=== PATIENT | female | born 1995 | race Hispanic/Latino ===

== ENCOUNTER 2017-05-21 17:12 | Emergency (ER) | payer SELFPAY ==
[2017-05-21 18:12] LABS: Urine Blood 3+ (NEG); Urine Glucose NEGATIVE (NEG); Urine Protein 2+ (NEG); Urine Specific Gravity 1.025 (1.005-1.030); Urine pH 6.5 (5.0-7.0)
--- NOTE | 2017-05-21 18:14 | ER ---
Nurse's Notes [facility] Name: France Smith Age: 22 yrs Sex: Female : 1995 Arrival Date: 05/21/2017 Time: 17:15 Bed 28 Private MD: Diagnosis: Encounter for screening, unspecified Presentation: 05/21 17:18 Presenting complaint: Patient states: for month now, every time i poop, its painful and hj i see blood, bright red blood and ived been spotting for a month; reports abd pain (L lower quadrant); on control;. Transition of care: patient was not received from another setting of care. Onset of symptoms was May 21, 2017. Care prior to arrival: None. 17:18 Method Of Arrival: Ambulatory 17:18 Acuity: MELINDA 3 hj Triage Assessment: 17:20 General: Appears in no apparent distress. uncomfortable, Behavior is calm, cooperative, hj appropriate for age. Pain: Complains of pain in left lower quadrant. : Reports vaginal bleeding that is spotty. 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 - Social history:: Smoking status: Patient/guardian denies using tobacco, never smoked. Screenin:00 Abuse screen: Denies threats or abuse. Nutritional screening: No deficits noted. tl3 Tuberculosis screening: No symptoms or risk factors identified. Fall Risk None identified. Assessment: 17:21 : hj 18:00 General: Appears in no apparent distress. comfortable, slender, well groomed, well tl3 developed, well nourished, Behavior is calm, cooperative, appropriate for age. Pain: Denies pain. Neuro: Level of Consciousness is awake, alert, obeys commands, Oriented to person, place, time, situation, Appropriate for age. Cardiovascular: Heart tones S1 S2 present Capillary refill < 3 seconds in bilateral fingers. Respiratory: Airway is patent Trachea midline Respiratory effort is even, unlabored, Respiratory pattern is regular, symmetrical, Breath sounds are clear bilaterally. GI: No signs and/or symptoms were reported involving the gastrointestinal system. : Reports vaginal bleeding that is bright red, light flow, two pads a day for the last month and a half, started on Depo shots 3 months ago. EENT: No signs and/or symptoms were reported regarding the EENT system. Derm: No signs and/or symptoms reported regarding the dermatologic system. Musculoskeletal: No signs and/or symptoms reported regarding the musculoskeletal system. Vital Signs: 17:21 BP 105 / 60; Pulse 88; Resp 18; Temp 98.4(TE); Pulse Ox 100% on R/A; Weight 70.76 kg; hj Height 5 ft. 6 in. (167.64 cm); Pain 6/10; 17:21 Body Mass Index 25.18 (70.76 kg, 167.64 cm) ED Course: 17:15 Patient arrived in ED. rg4 17:20 Triage completed. hj 17:21 Arm band placed on left wrist. hj 17:33 Kaitlyn Du FNP-C [facility]. snw 17:33 Negrito Clemente MD is Attending Physician. snw 17:51 Zuri Parks, RN is Primary Nurse. tl3 18:00 No apparent distress. Awaiting lab results. tl3 18:00 Patient has correct armband on for positive identification. Bed in low position. Call tl3 light in reach. 18:00 No provider procedures requiring assistance completed. tl3 19:45 Patient did not have IV access during this emergency room visit. tl3 Administered Medications: No medications were administered Outcome: 18:14 Discharge ordered by . snw 18:27 Patient left the ED. tl3 18:27 Discharged to home ambulatory. tl3 18:27 Condition: good 18:27 Discharge instructions given to patient. Signatures: Kaitlyn Du FNP-C OCCUPATIONAL HEALTH NURSING DIRECTOR-Csnw Gene Zamora RN RN hj Garcia, Rubi 4 Zuri Parks, STEF RN tl3 Corrections: (The following items were deleted from the chart) 17:23 17:21 Pulse 88bpm; Resp 18bpm; Pulse Ox 100% RA; Temp 98.4F Temporal; 70.76 kg; Height hj 5 ft. 6 in.; BMI: 25.1; Pain 6/10; hj
--- NOTE | 2017-05-21 18:15 | EDPHYS ---
Physician Documentation [facility] Name: France Smith Age: 22 yrs Sex: Female : 1995 Arrival Date: 05/21/2017 Time: 17:15 Bed 28 Private MD: ED Physician Negrito Clemente HPI: 05/21 18:24 This 22 yrs old Female presents to ER via Ambulatory with complaints of snw Vaginal Bleeding. 18:24 The patient presents with vaginal bleeding that is light, tenderness to rectal area snw with bowel movements. Onset: The symptoms/episode began/occurred 1 month(s) ago. Modifying factors: The symptoms are alleviated by nothing. Associated signs and symptoms: The patient has no apparent associated signs or symptoms. Severity of symptoms: At their worst the symptoms were mild. The patient's method of control includes depo. It is unknown whether or not the patient has had similar symptoms in the past. The patient has not recently seen a physician, awaiting medicaid. 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 - Social history:: Smoking status: Patient/guardian denies using tobacco, never smoked. ROS: 18:18 Constitutional: Negative for fever, chills, and weight loss, Eyes: Negative for injury, snw pain, redness, and discharge, ENT: Negative for injury, pain, and discharge, Neck: Negative for injury, pain, and swelling, Cardiovascular: Negative for chest pain, palpitations, and edema, Respiratory: Negative for shortness of breath, cough, wheezing, and pleuritic chest pain, Abdomen/GI: Negative for abdominal pain, nausea, vomiting, diarrhea, and constipation, + rectal pain, bleeding Back: Negative for injury and pain, MS/Extremity: Negative for injury and deformity, Skin: Negative for injury, rash, and discoloration, Neuro: Negative for headache, weakness, numbness, tingling, and seizure. 18:18 : Positive for vaginal bleeding. Exam: 18:18 Constitutional: This is a well developed, well nourished patient who is awake, alert, snw and in no acute distress. Head/Face: Normocephalic, atraumatic. Eyes: Pupils equal round and reactive to light, extra-ocular motions intact. Lids and lashes normal. Conjunctiva and sclera are non-icteric and not injected. Cornea within normal limits. Periorbital areas with no swelling, redness, or edema. ENT: Nares patent. No nasal discharge, no septal abnormalities noted. Tympanic membranes are normal and external auditory canals are clear. Oropharynx with no redness, swelling, or masses, exudates, or evidence of obstruction, uvula midline. Mucous membranes moist. Neck: Trachea midline, no thyromegaly or masses palpated, and no cervical lymphadenopathy. Supple, full range of motion without nuchal rigidity, or vertebral point tenderness. No Meningismus. Chest/axilla: Normal chest wall appearance and motion. Nontender with no deformity. No lesions are appreciated. Cardiovascular: Regular rate and rhythm with a normal S1 and S2. No gallops, murmurs, or rubs. Normal PMI, no JVD. No pulse deficits. Respiratory: Lungs have equal breath sounds bilaterally, clear to auscultation and percussion. No rales, rhonchi or wheezes noted. No increased work of breathing, no retractions or nasal flaring. Abdomen/GI: Soft, non-tender, with normal bowel sounds. No distension or tympany. No guarding or rebound. No evidence of tenderness throughout. + rectal tenderness, small fissure and external hemorrhoid noted, no active bleeding Back: No spinal tenderness. No costovertebral tenderness. Full range of motion. Skin: Warm, dry with normal turgor. Normal color with no rashes, no lesions, and no evidence of cellulitis. MS/ Extremity: Pulses equal, no cyanosis. Neurovascular intact. Full, normal range of motion. Neuro: Awake and alert, GCS 15, oriented to person, place, time, and situation. Cranial nerves II-XII grossly intact. Motor strength 5/5 in all extremities. Sensory grossly intact. Cerebellar exam normal. Normal gait. Vital Signs: 17:21 BP 105 / 60; Pulse 88; Resp 18; Temp 98.4(TE); Pulse Ox 100% on R/A; Weight 70.76 kg; hj Height 5 ft. 6 in. (167.64 cm); Pain 6/10; 17:21 Body Mass Index 25.18 (70.76 kg, 167.64 cm) hj MDM: 17:36 Patient medically screened. snw 18:21 Data reviewed: vital signs, nurses notes. Data interpreted: Pulse oximetry: on room air snw is 100 %. Interpretation: normal. Counseling: I had a detailed discussion with the patient and/or guardian regarding: the historical points, exam findings, and any diagnostic results supporting the discharge/admit diagnosis, the need for outpatient follow up, to return to the emergency department if symptoms worsen or persist or if there are any questions or concerns that arise at home. Special discussion: Based on the history and exam findings, there is no indication for further emergent testing or inpatient evaluation. I discussed with the patient/guardian the need to see the OB Gyne specialist for further evaluation of the symptoms. ED course: pt states she is not supposed to have vaginal bleeding because she is on depo provera. Pt last rec'd dose >3 months ago. Awaiting medicaid before getting appt with [facility]. 05/21 18:05 Order name: Urine Dipstick--Ancillary (enter results); Complete Time: 18:14 ag 05/21 18:05 Order name: Urine --Ancillary (enter results); Complete Time: 18:14 ag 05/21 17:23 Order name: Urine Dipstick-Ancillary (obtain specimen); Complete Time: 18:00 hj 05/21 17:23 Order name: Urine Test (obtain specimen); Complete Time: 18:00 Administered Medications: No medications were administered Disposition: 05/22 10:23 Co-signature as Attending Physician, Negrito Clemente MD I agree with the assessment and jacob plan of care. Disposition: 05/21/17 18:14 Discharged to Home. Impression: Encounter for screening, unspecified. - Condition is Stable. - Discharge Instructions: Constipation, Adult, Dysmenorrhea, Hemorrhoids, Sitz Bath. - Prescriptions for Tucks - wash 1 application by TOPICAL route 6 times per day; 1 Container. - Medication Reconciliation Form, Thank You Letter, Antibiotic Education, Prescription Opioid Use form. - Follow up: Private Physician; When: 1 week; Reason: Recheck today's complaints, Continuance of care, Re-evaluation by your physician. Signatures: Dispatcher [employer] Negrito Nelson MD MD cha Therrien, Shelly, FINANCE CLERK-C FINANCE CLERK-Csnw Gene Zamora, RN RN hj Zuri Parks RN RN tl3
== END 2017-05-21 18:27 | disposition home or self-care (01) ==
LOC: ER 17:12
DX: Z13.9 Encounter for screening, unspecified (principal)
CPT/HCPCS: 81003; 81025; 99281

== ENCOUNTER 2018-02-17 12:41 | Emergency (ER) | payer SELFPAY ==
[2018-02-17 13:28] LABS: Urine Blood 3+ (NEG); Urine Glucose NEGATIVE (NEG); Urine Protein 1+ (NEG); Urine Specific Gravity 1.025 (1.005-1.030); Urine pH 6.5 (5.0-7.0)
[2018-02-17] MEDS ORDERED: NA CHLORIDE 0.9% 1,000 ML ONE (13:30)
[2018-02-17] MEDS ORDERED: ONDANSETRON 4 MG/2 ML VIAL ONE (13:30)
[2018-02-17 13:36] LABS: Barbiturates NEGATIVE (NEGATIVE); Benzodiazepines NEGATIVE (NEGATIVE); Cocaine NEGATIVE (NEGATIVE); METHAMPHETAM NEGATIVE (NEGATIVE); Methadone NEGATIVE (NEGATIVE); Opiates NEGATIVE (NEGATIVE); Phencyclidine NEGATIVE (NEGATIVE); THC Cannibis NEGATIVE (NEGATIVE)
[2018-02-17 13:55] LABS: Absolute Lymphocytes (CBC) 1.3 K/uL (0.7-4.9); Absolute Monocytes 0.4 K/uL (0.1-1.3); Absolute Neutrophil 3.5 K/uL (1.8-8.0); Basophils % 0.9 % (0-1.3); Hematocrit 42.6 % (36.0-45.0); Lymphocytes % 22.8 % (15.3-44.8); MPV 10.2 fL (7.6-11.3); Monocytes % 7.3 % (3.3-12.3); RBC Red Blood Cell Count 5.09 M/uL (3.86-4.86)
[2018-02-17 13:58] LABS: BUN Blood Urea Nitrogen 12 mg/dL (7-18); Bicarbonate 27 mmol/L (21-32); Glucose Level 85 mg/dL (74-106); Potassium 3.5 mmol/L (3.5-5.1); Sodium Level 142 mmol/L (136-145)
[2018-02-17 14:08] LABS: Urine Bacteria 20-50 /HPF (<20)
[2018-02-17 14:09] LABS: Urine Culture Reflex Order NOT NEEDED; Urine Mucus 2+ /HPF (NONE SEEN)
--- NOTE | 2018-02-17 14:10 | EDPHYS ---
Physician Documentation [facility] Name: France Smith Age: 22 yrs Sex: Female : 1995 Arrival Date: 02/17/2018 Time: 12:43 Bed 23 Private MD: None, None ED Physician Negrito Clemente HPI: 02/17 13:36 This 22 yrs old Female presents to ER via Ambulatory with complaints of kb Nausea/Vomiting, Dizziness. 13:36 The patient presents to the emergency department with nausea, vomiting. Onset: The kb symptoms/episode began/occurred last night. Possible causes: unknown. The symptoms are aggravated by nothing. The symptoms are alleviated by nothing. Associated signs and symptoms: Pertinent positives: nausea, vomiting. Severity of symptoms: At their worst the symptoms were moderate in the emergency department the symptoms are unchanged. The patient has not experienced similar symptoms in the past. The patient has not recently seen a physician. 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 - Social history:: Smoking status: Patient/guardian denies using tobacco, Patient uses alcohol, only on a social basis. - Ebola Screening: : Patient negative for fever greater than or equal to 101.5 degrees Fahrenheit, and additional compatible Ebola Virus Disease symptoms Patient denies exposure to infectious person Patient denies travel to an Ebola-affected area in the 21 days before illness onset No symptoms or risks identified at this time. ROS: 13:34 Constitutional: Negative for fever, chills, and weight loss, Cardiovascular: Negative kb for chest pain, palpitations, and edema, Respiratory: Negative for shortness of breath, cough, wheezing, and pleuritic chest pain, Back: Negative for injury and pain, MS/Extremity: Negative for injury and deformity, Skin: Negative for injury, rash, and discoloration, Neuro: Negative for headache, weakness, numbness, tingling, and seizure. 13:34 Abdomen/GI: Positive for nausea and vomiting, Negative for abdominal pain, diarrhea, constipation. Exam: 13:35 Constitutional: This is a well developed, well nourished patient who is awake, alert, kb and in no acute distress. Head/Face: Normocephalic, atraumatic. ENT: Nares patent. No nasal discharge, no septal abnormalities noted. Tympanic membranes are normal and external auditory canals are clear. Oropharynx with no redness, swelling, or masses, exudates, or evidence of obstruction, uvula midline. Mucous membranes moist. Neck: Trachea midline, no thyromegaly or masses palpated, and no cervical lymphadenopathy. Supple, full range of motion without nuchal rigidity, or vertebral point tenderness. No Meningismus. Chest/axilla: Normal chest wall appearance and motion. Nontender with no deformity. No lesions are appreciated. Cardiovascular: Regular rate and rhythm with a normal S1 and S2. No gallops, murmurs, or rubs. Normal PMI, no JVD. No pulse deficits. Respiratory: Lungs have equal breath sounds bilaterally, clear to auscultation and percussion. No rales, rhonchi or wheezes noted. No increased work of breathing, no retractions or nasal flaring. Abdomen/GI: Soft, non-tender, with normal bowel sounds. No distension or tympany. No guarding or rebound. No evidence of tenderness throughout. Skin: Warm, dry with normal turgor. Normal color with no rashes, no lesions, and no evidence of cellulitis. MS/ Extremity: Pulses equal, no cyanosis. Neurovascular intact. Full, normal range of motion. Neuro: Awake and alert, GCS 15, oriented to person, place, time, and situation. Cranial nerves II-XII grossly intact. Motor strength 5/5 in all extremities. Sensory grossly intact. Cerebellar exam normal. Normal gait. Vital Signs: 12:56 BP 119 / 63; Pulse 87; Resp 19; Temp 97.7; Pulse Ox 100% on R/A; Weight 77.11 kg; aj Height 5 ft. 6 in. (167.64 cm); 13:10 BP 112 / 75 Supine; Pulse 74; kr2 13:10 BP 106 / 70 Sitting; Pulse 72; kr2 13:10 BP 104 / 83; Pulse 97; kr2 15:01 BP 110 / 84; Pulse 78; Resp 16; Pulse Ox 100% ; kr2 12:56 Body Mass Index 27.44 (77.11 kg, 167.64 cm) aj 13:10 complains of dizziness kr2 13:10 complains of dizziness kr2 MDM: 12:58 Patient medically screened. kb 13:34 Data reviewed: vital signs, nurses notes. Data interpreted: Pulse oximetry: on room air kb is 100 %. Interpretation: normal. 14:03 Counseling: I had a detailed discussion with the patient and/or guardian regarding: the kb historical points, exam findings, and any diagnostic results supporting the discharge/admit diagnosis, lab results, the need for outpatient follow up, a family practitioner, to return to the emergency department if symptoms worsen or persist or if there are any questions or concerns that arise at home. 02/17 12:44 Order name: Urine Drug Screen; Complete Time: 13:38 snw 02/17 12:44 Order name: Urine Culture snw 02/17 12:44 Order name: Urine Microscopic Only; Complete Time: 14:09 snw 02/17 13:04 Order name: CBC with Diff; Complete Time: 14:02 kb 02/17 13:04 Order name: Basic Metabolic Panel; Complete Time: 14:02 kb 02/17 13:21 Order name: Urine Dipstick--Ancillary (enter results); Complete Time: 13:30 ag 02/17 12:44 Order name: Urine Test (obtain specimen); Complete Time: 13:33 snw 02/17 12:44 Order name: Urine Dipstick-Ancillary (obtain specimen); Complete Time: 13:33 snw 02/17 12:58 Order name: Orthostatics; Complete Time: 13:07 kb 02/17 13:04 Order name: IV Start; Complete Time: 13:33 kb 02/17 14:03 Order name: PO challenge; Complete Time: 14:16 kb Administered Medications: 13:32 Drug: NS 0.9% 1000 ml Route: IV; Rate: 1000 ml; Site: right antecubital; kr2 15:00 Follow up: Response: No adverse reaction; IV Status: Completed infusion kr2 13:33 Drug: Zofran 4 mg Route: IVP; Site: right antecubital; kr2 14:09 Follow up: Response: No adverse reaction; Nausea is decreased kr2 Disposition: 15:07 Co-signature as Attending Physician, Negrito Clemente MD I agree with the assessment and jacob plan of care. Disposition: 02/17/18 14:10 Discharged to Home. Impression: Nausea and vomiting. - Condition is Stable. - Discharge Instructions: Nausea and Vomiting, Adult, [id number]. - Prescriptions for Zofran 4 mg Oral Tablet - take 1 tablet by ORAL route every 6 hours As needed; 20 tablet. - Medication Reconciliation Form, Thank You Letter, Antibiotic Education, Prescription Opioid Use form. - Follow up: Emergency Department; When: As needed; Reason: Worsening of condition. Follow up: Private Physician; When: 2 - 3 days; Reason: Recheck today's complaints, Continuance of care, Re-evaluation by your physician. Signatures: Dispatcher [employer] EDMS Marley Spencer, NURSING AIDE-C NURSING AIDE-Clarissa Ayon, RN Negrito Allan MD MD cha Therrien, Shelly, NURSING AIDE-C NURSING AIDE-Kelliw Joy Murphy RN RN kr2 Corrections: (The following items were deleted from the chart) 15:04 14:10 02/17/2018 14:10 Discharged to Home. Impression: Nausea and vomiting. Condition kr2 is Stable. Forms are Medication Reconciliation Form, Thank You Letter, Antibiotic Education, Prescription Opioid Use. Follow up: Emergency Department; When: As needed; Reason: Worsening of condition. Follow up: Private Physician; When: 2 - 3 days; Reason: Recheck today's complaints, Continuance of care, Re-evaluation by your physician. kb
--- NOTE | 2018-02-17 14:10 | ER ---
Nurse's Notes [facility] Name: France Smith Age: 22 yrs Sex: Female : 1995 Arrival Date: 02/17/2018 Time: 12:43 Bed 23 Private MD: None, None Diagnosis: Nausea and vomiting Presentation: 02/17 12:54 Presenting complaint: Patient states: N/V and dizziness when standing since yesterday. aj Reports blood streaking in emesis. Patient ambulated with steady quick gait to triage, using cell phone with no difficulty. Patient was able to apply makeup prior to arrival at ER. Transition of care: patient was not received from another setting of care. Onset of symptoms was February 16, 2018. Risk Assessment: Do you want to hurt yourself or someone else? Patient reports no desire to harm self or others. Initial Sepsis Screen: Does the patient meet any 2 criteria? No. Patient's initial sepsis screen is negative. Does the patient have a suspected source of infection? No. Patient's initial sepsis screen is negative. Care prior to arrival: None. 12:54 Method Of Arrival: Ambulatory 12:54 Acuity: MELINDA 3 Triage Assessment: 12:56 General: Appears in no apparent distress. comfortable, Behavior is calm, cooperative, aj appropriate for age. Pain: Denies pain. Neuro: Level of Consciousness is awake, alert, obeys commands, Oriented to person, place, time, situation, Appropriate for age. Respiratory: Airway is patent Respiratory effort is even, unlabored, Respiratory pattern is regular, symmetrical. GI: Abdomen is flat, non-distended, Reports nausea, vomiting. Derm: Skin is intact, is healthy with good turgor, Skin is pink, warm \T\ dry. normal. 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 - Social history:: Smoking status: Patient/guardian denies using tobacco, Patient uses alcohol, only on a social basis. - Ebola Screening: : Patient negative for fever greater than or equal to 101.5 degrees Fahrenheit, and additional compatible Ebola Virus Disease symptoms Patient denies exposure to infectious person Patient denies travel to an Ebola-affected area in the 21 days before illness onset No symptoms or risks identified at this time. Screenin:12 Abuse screen: Denies threats or abuse. Denies injuries from another. Nutritional kr2 screening: No deficits noted. Tuberculosis screening: No symptoms or risk factors identified. Fall Risk None identified. Assessment: 13:08 General: Appears in no apparent distress. comfortable, well groomed, well developed, kr2 well nourished, Behavior is calm, cooperative, appropriate for age. Pain: Denies pain. Neuro: Level of Consciousness is awake, alert, obeys commands, Oriented to person, place, time, situation, Appropriate for age. Neuro: Reports dizziness. Cardiovascular: Reports nausea, vomiting, Capillary refill < 3 seconds in bilateral fingers Patient's skin is warm and dry. Respiratory: Airway is patent Respiratory effort is even, unlabored, Respiratory pattern is regular, symmetrical. GI: Abdomen is flat, non-distended, Bowel sounds present X 4 quads. Abd is soft and non tender X 4 quads. Reports nausea, vomiting. : Urine is clear. EENT: Oral mucosa is moist. Derm: Skin is intact, is healthy with good turgor, Skin is pink, warm \T\ dry. Musculoskeletal: Circulation, motion, and sensation intact. 14:00 Reassessment: Patient appears in no apparent distress at this time. Patient and/or kr2 family updated on plan of care and expected duration. Pain level reassessed. Patient is alert, oriented x 3, equal unlabored respirations, skin warm/dry/pink. Patient denies pain at this time. Patient states feeling better. 15:01 Reassessment: Patient appears in no apparent distress at this time. Patient and/or kr2 family updated on plan of care and expected duration. Pain level reassessed. Patient is alert, oriented x 3, equal unlabored respirations, skin warm/dry/pink. No vomiting after PO challenge. Vital Signs: 12:56 BP 119 / 63; Pulse 87; Resp 19; Temp 97.7; Pulse Ox 100% on R/A; Weight 77.11 kg; aj Height 5 ft. 6 in. (167.64 cm); 13:10 BP 112 / 75 Supine; Pulse 74; kr2 13:10 BP 106 / 70 Sitting; Pulse 72; kr2 13:10 BP 104 / 83; Pulse 97; kr2 15:01 BP 110 / 84; Pulse 78; Resp 16; Pulse Ox 100% ; kr2 12:56 Body Mass Index 27.44 (77.11 kg, 167.64 cm) aj 13:10 complains of dizziness kr2 13:10 complains of dizziness kr2 ED Course: 12:43 Patient arrived in ED. sb2 12:43 None, None is Private Physician. sb2 12:49 Marley Spencer FNP-C is PHCP. kb 12:49 Negrito Clemente MD is Attending Physician. kb 12:55 Triage completed. aj 12:56 Arm band placed on left wrist. Patient placed in an exam room. aj 13:12 Patient has correct armband on for positive identification. Bed in low position. Call kr2 light in reach. Side rails up X 1. Adult w/ patient. Pulse ox on. NIBP on. 13:20 Inserted saline lock: 20 gauge in right antecubital area, using aseptic technique. kr2 Blood collected. 14:59 Joy Murphy, RN is Primary Nurse. kr2 15:02 No provider procedures requiring assistance completed. IV discontinued, intact, kr2 bleeding controlled, No redness/swelling at site. Pressure dressing applied. Administered Medications: 13:32 Drug: NS 0.9% 1000 ml Route: IV; Rate: 1000 ml; Site: right antecubital; kr2 15:00 Follow up: Response: No adverse reaction; IV Status: Completed infusion kr2 13:33 Drug: Zofran 4 mg Route: IVP; Site: right antecubital; kr2 14:09 Follow up: Response: No adverse reaction; Nausea is decreased kr2 Outcome: 14:10 Discharge ordered by . kb 15:02 Discharged to home ambulatory, with family. kr2 15:02 Condition: good 15:02 Discharge instructions given to patient, family, Instructed on discharge instructions, follow up and referral plans. medication usage, Demonstrated understanding of instructions, follow-up care, medications, Prescriptions given X 1. 15:04 Patient left the ED. kr2 Addendum: 02/20/2018 08:47 Addendum: Culture Results: Positive urine culture. pt had no urinary complaints at time i w of visit, no need for further intervention, culture report reviewed by AMADOU Guzman Patient was not prescribed antibiotics at discharge. Report given to ADELA for further evaluation and then to test design engineer for follow up with patient. Signatures: Marley Spencer, LIA WYATT-Clarissa Ayon RN RN Philomena Reece RN RN iw Reaves, Karey, RN RN kr2 Kimberly Buchanan2 Corrections: (The following items were deleted from the chart) 02/17 12:57 12:54 Presenting complaint: Patient states: N/V and dizziness when standing since aj yesterday. Reports blood streaking in emesis. Patient ambulated with steady quick gait to triage, using cell phone with no difficulty. aj
== END 2018-02-17 15:04 | disposition home or self-care (01) ==
LOC: ER 12:41
DX: R11.2 Nausea with vomiting, unspecified (principal)
CPT/HCPCS: 36415; 80048; 80307; 81003; 81015; 85025; 87077; 87086; 87088; 87186; 96361; 96374; 99284; J2405; J7030

== ENCOUNTER 2018-12-20 22:06 | Emergency (ER) | payer SELFPAY ==
[2018-12-20] MEDS ORDERED: SIMETHICONE 80 MG TAB ONE (22:35)
[2018-12-20] MEDS ORDERED: ALBUTEROL 2.5 MG/3 ML NEB SOL ONE (22:43)
[2018-12-20] MEDS ORDERED: NA CHLORIDE 0.9% 1,000 ML ONE (22:44)
[2018-12-20 23:00] LABS: Absolute Lymphocytes (CBC) 2.5 K/uL (0.7-4.9); Basophils % 0.9 % (0-1.3); Hematocrit 35.7 % (36.0-45.0); Lymphocytes % 24.2 % (15.3-44.8); MPV 10.7 fL (7.6-11.3); RBC Red Blood Cell Count 4.31 M/uL (3.86-4.86)
[2018-12-20 23:19] LABS: Urine Bacteria <20 /HPF (<20); Urine Culture Reflex Order NOT NEEDED; Urine RBC <5 /HPF (NONE SEEN)
[2018-12-20 23:22] LABS: BUN Blood Urea Nitrogen 9 mg/dL (7-18); Bicarbonate 27 mmol/L (21-32); Glucose Level 83 mg/dL (74-106); Potassium 3.3 mmol/L (3.5-5.1); Sodium Level 141 mmol/L (136-145)
--- NOTE | 2018-12-20 23:32 | ER ---
Nurse's Notes [facility] Name: France Smith Age: 23 yrs Sex: Female : 1995 Arrival Date: 12/20/2018 Time: 22:09 Bed 8 Private MD: Diagnosis: Wheezing;Allergy, unspecified Presentation: 12/20 22:20 Presenting complaint: Patient states: cough, SOB X2 days. pt is [place] and uses [facility] ak[facility] clinic. pt stated she feels as if there is a "blockage" in her epigastric area. Transition of care: patient was not received from another setting of care. Onset of symptoms was December 19, 2018. Risk Assessment: Do you want to hurt yourself or someone else? Patient reports no desire to harm self or others. Initial Sepsis Screen: Does the patient meet any 2 criteria? No. Patient's initial sepsis screen is negative. Does the patient have a suspected source of infection? No. Patient's initial sepsis screen is negative. Care prior to arrival: None. 22:20 Method Of Arrival: Ambulatory ak1 22:20 Acuity: MELINDA 4 ak1 Triage Assessment: 22:22 General: Appears in no apparent distress. Behavior is cooperative, anxious. Pain: ak1 Denies pain. 22:23 Respiratory: Onset: The symptoms/episode began/occurred yesterday. 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 - Social history:: Smoking status: Patient/guardian denies using tobacco. - Ebola Screening: : No symptoms or risks identified at this time. Screenin:23 Abuse screen: Denies threats or abuse. Denies injuries from another. Nutritional ak1 screening: No deficits noted. Tuberculosis screening: No symptoms or risk factors identified. Fall Risk None identified. Assessment: 22:35 General: Appears in no apparent distress. comfortable, Behavior is calm, cooperative, aa1 appropriate for age. Pain: Complains of pain in xyphoid area Quality of pain is described as pressure, Pain began 2-3 days ago. Is intermittent. Neuro: Level of Consciousness is awake, alert, obeys commands, Oriented to person, place, time, situation, Moves all extremities. Full function Gait is steady, Speech is normal. Cardiovascular: Heart tones S1 S2 present Rhythm is regular. Respiratory: Reports shortness of breath at rest cough that is non-productive, Airway is patent Respiratory effort is even, unlabored, Respiratory pattern is regular, symmetrical, Breath sounds are clear bilaterally. the patient has mild shortness of breath. GI: No signs and/or symptoms were reported involving the gastrointestinal system. : No signs and/or symptoms were reported regarding the genitourinary system. EENT: No signs and/or symptoms were reported regarding the EENT system. Derm: Skin is intact, is healthy with good turgor, Skin is pink, warm \\T\\ dry. Musculoskeletal: Circulation, motion, and sensation intact. Capillary refill < 3 seconds. 23:41 Reassessment: Patient appears in no apparent distress at this time. Patient is alert, aa1 oriented x 3, equal unlabored respirations, skin warm/dry/pink. Discussed d/c \\T\\ f/u instructions with pt \\T\\ significant other; denies questions or concerns at this time. Ambulatory to lobby with steady gait Patient denies pain at this time. Patient states feeling better. Patient states symptoms have improved. Vital Signs: 22:19 BP 127 / 78; Pulse 106; Resp 18; Temp 97.5; Pulse Ox 100% on R/A; Weight 81.65 kg (R); ak1 Height 5 ft. 6 in. (167.64 cm) (R); Pain 0/10; 23:04 BP 118 / 77; Pulse 92; Resp 20; Pulse Ox 100% on R/A; Pain 0/10; aa1 22:19 Body Mass Index 29.05 (81.65 kg, 167.64 cm) ak1 ED Course: 22:09 Patient arrived in ED. cf2 22:19 Arm band placed on Patient placed in an exam room, on a stretcher, on pulse oximetry, ak1 Patient notified of wait time. 22:21 Kaitlyn Du [facility]C [facility] snw 22:21 Rodrick Ely MD is Attending Physician. snw 22:22 Triage completed. ak1 22:23 Patient has correct armband on for positive identification. Bed in low position. Call ak1 light in reach. Side rails up X 1. Adult w/ patient. Pulse ox on. NIBP on. 22:31 Lesly Calderon, RN is Primary Nurse. aa1 22:40 Urine collected: clean catch specimen, clear. aa1 22:48 Inserted saline lock: 20 gauge in right antecubital area, using aseptic technique. mw2 Blood collected. 23:41 No provider procedures requiring assistance completed. IV discontinued, intact, aa1 bleeding controlled, No redness/swelling at site. Pressure dressing applied. Administered Medications: 22:38 Drug: Simethicone 120 mg Route: PO; aa1 22:50 Drug: Albuterol 2.5 mg Route: Inhalation; aa1 22:50 Drug: NS 0.9% (20 ml/kg) 20 ml/kg Route: IV; Rate: 1 bolus; Site: right antecubital; aa1 Outcome: 23:31 Discharge ordered by . snw 23:41 Discharged to home ambulatory, with significant other. aa1 23:41 Condition: good 23:41 Discharge instructions given to patient, significant other, Instructed on discharge instructions, follow up and referral plans. medication usage, Demonstrated understanding of instructions, follow-up care, medications, Prescriptions given X 2. 23:45 Patient left the ED. aa1 Signatures: Lesly Calderon, RN RN aa1 Kaitlyn Du, FLARE MAN-C FLARE MAN-Csnw Dede Nolasco RN RN ak1 Maxi Lela mw2 Leonid Inman 2
--- NOTE | 2018-12-20 23:32 | EDPHYS ---
Physician Documentation [facility] Name: France Smith Age: 23 yrs Sex: Female : 1995 Arrival Date: 12/20/2018 Time: 22:09 Bed 8 Private MD: ED Physician Rodrick Ely HPI: 12/20 22:40 This 23 yrs old Female presents to ER via Ambulatory with complaints of snw Shortness Of Breath. 22:40 The patient has shortness of breath at rest. Onset: The symptoms/episode began/occurred snw suddenly, 2 day(s) ago, and became persistent. Duration: The symptoms are continuous, and are steadily getting worse. The patient's shortness of breath is aggravated by nothing, is alleviated by nothing. Severity of symptoms: At their worst the symptoms were moderate in the emergency department the symptoms are unchanged. The patient has not experienced similar symptoms in the past. appt with [facility] [[email or web address] tomorrow, + IUP. . 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 - Social history:: Smoking status: Patient/guardian denies using tobacco. - Ebola Screening: : No symptoms or risks identified at this time. ROS: 22:39 Eyes: Negative for injury, pain, redness, and discharge, ENT: Negative for injury, snw pain, and discharge, Neck: Negative for injury, pain, and swelling, Cardiovascular: Negative for chest pain, palpitations, and edema, Abdomen/GI: Negative for abdominal pain, nausea, vomiting, diarrhea, and constipation, Back: Negative for injury and pain, : Negative for injury, bleeding, discharge, and swelling, MS/Extremity: Negative for injury and deformity, Skin: Negative for injury, rash, and discoloration, Neuro: Negative for headache, weakness, numbness, tingling, and seizure, Psych: Negative for depression, anxiety, suicide ideation, homicidal ideation, and hallucinations. 22:39 Constitutional: Positive for feel short of breath. 22:39 Respiratory: Positive for cough, shortness of breath, wheezing. Exam: 22:38 Constitutional: This is a well developed, well nourished patient who is awake, alert, snw and in no acute distress. Head/Face: Normocephalic, atraumatic. Eyes: Pupils equal round and reactive to light, extra-ocular motions intact. Lids and lashes normal. Conjunctiva and sclera are non-icteric and not injected. Cornea within normal limits. Periorbital areas with no swelling, redness, or edema. ENT: Nares patent. No nasal discharge, no septal abnormalities noted. Tympanic membranes are normal and external auditory canals are clear. Oropharynx with no redness, swelling, or masses, exudates, or evidence of obstruction, uvula midline. Mucous membranes moist. Neck: Trachea midline, no thyromegaly or masses palpated, and no cervical lymphadenopathy. Supple, full range of motion without nuchal rigidity, or vertebral point tenderness. No Meningismus. Chest/axilla: Normal chest wall appearance and motion. Nontender with no deformity. No lesions are appreciated. Cardiovascular: Regular rate and rhythm with a normal S1 and S2. No gallops, murmurs, or rubs. Normal PMI, no JVD. No pulse deficits. Abdomen/GI: Soft, non-tender, with normal bowel sounds. No distension or tympany. No guarding or rebound. No evidence of tenderness throughout. Back: No spinal tenderness. No costovertebral tenderness. Full range of motion. Skin: Warm, dry with normal turgor. Normal color with no rashes, no lesions, and no evidence of cellulitis. MS/ Extremity: Pulses equal, no cyanosis. Neurovascular intact. Full, normal range of motion. Neuro: Awake and alert, GCS 15, oriented to person, place, time, and situation. Cranial nerves II-XII grossly intact. Motor strength 5/5 in all extremities. Sensory grossly intact. Cerebellar exam normal. Normal gait. Psych: Awake, alert, with orientation to person, place and time. Behavior, mood, and affect are within normal limits. 22:38 Respiratory: the patient does not display signs of respiratory distress, Respirations: frequent deep breaths, Breath sounds: wheezing: expiratory SpO2 100%, but pt feels SOB. Vital Signs: 22:19 BP 127 / 78; Pulse 106; Resp 18; Temp 97.5; Pulse Ox 100% on R/A; Weight 81.65 kg (R); ak1 Height 5 ft. 6 in. (167.64 cm) (R); Pain 0/10; 23:04 BP 118 / 77; Pulse 92; Resp 20; Pulse Ox 100% on R/A; Pain 0/10; aa1 22:19 Body Mass Index 29.05 (81.65 kg, 167.64 cm) ak1 MDM: 22:26 Patient medically screened. snw 23:32 Data reviewed: vital signs, nurses notes. Counseling: I had a detailed discussion with snw the patient and/or guardian regarding: the historical points, exam findings, and any diagnostic results supporting the discharge/admit diagnosis, lab results, the need for outpatient follow up, to return to the emergency department if symptoms worsen or persist or if there are any questions or concerns that arise at home. Response to treatment: the patient's symptoms have markedly improved after treatment. Special discussion: Based on the history and exam findings, there is no indication for further emergent testing or inpatient evaluation. I discussed with the patient/guardian the need to see the OB Gyne specialist for further evaluation of the symptoms. 12/20 22:30 Order name: Urine Microscopic Only; Complete Time: 23:20 snw 12/20 22:35 Order name: CBC with Diff; Complete Time: 23:16 snw 12/20 22:35 Order name: Chem 7; Complete Time: 23:25 snw 12/20 22:35 Order name: DD; Complete Time: 23:16 snw 12/20 22:35 Order name: TSH; Complete Time: 23:25 snw 12/20 22:30 Order name: Urine Dipstick-Ancillary (obtain specimen); Complete Time: 22:49 snw 12/20 22:49 Order name: IV Start; Complete Time: 22:49 aa1 Administered Medications: 22:38 Drug: Simethicone 120 mg Route: PO; aa1 22:50 Drug: Albuterol 2.5 mg Route: Inhalation; aa1 22:50 Drug: NS 0.9% (20 ml/kg) 20 ml/kg Route: IV; Rate: 1 bolus; Site: right antecubital; aa1 Disposition: 12/21 07:00 Co-signature as Attending Physician, Rodrick Ely MD I agree with the assessment and tw4 plan of care. Disposition: 12/20/18 23:31 Discharged to Home. Impression: Wheezing, Allergy, unspecified. - Condition is Stable. - Discharge Instructions: Allergies, Adult, How to Use an Inhaler. - Prescriptions for Zyrtec 10 mg Oral Tablet - take 1 tablet by ORAL route once daily As needed; 20 tablet. Albuterol Sulfate 90 mcg/actuation - inhale 1-2 puff by INHALATION route every 4-6 hours; 1 Inhaler. - Work release form, Medication Reconciliation Form, Thank You Letter, Antibiotic Education, Prescription Opioid Use form. - Follow up: Private Physician; When: 1 - 2 days; Reason: Recheck today's complaints, Continuance of care, Re-evaluation by your physician. Follow up: Emergency Department; When: As needed; Reason: Trouble breathing, Worsening of condition. Signatures: Dispatcher [employer] EDLesly Holcomb RN RN aa1 Kaitlyn Du, ENVIRONMENTAL SERVICES DIRECTOR-C ENVIRONMENTAL SERVICES DIRECTOR-Csnw Dede Nolasco RN RN ak1 Rodrick Ely MD MD tw4 Corrections: (The following items were deleted from the chart) 12/20 23:45 23:31 12/20/2018 23:31 Discharged to Home. Impression: Wheezing; Allergy, unspecified. aa1 Condition is Stable. Forms are Medication Reconciliation Form, Thank You Letter, Antibiotic Education, Prescription Opioid Use. Follow up: Private Physician; When: 1 - 2 days; Reason: Recheck today's complaints, Continuance of care, Re-evaluation by your physician. Follow up: Emergency Department; When: As needed; Reason: Trouble breathing, Worsening of condition. snw
[2018-12-21 01:52] VITALS: TEMP 97.5; O2SAT 100
[2018-12-21 01:54] VITALS: BP 118/77
--- OUTSIDE RECORDS SUMMARY | 2018-12-26 22:10 | XMS REPORT ---
:1995 [facility] Address [address] [place] [address] Dr. Starks [address] [place] [id number] Care Team Providers Name Role Phone Unavailable Unavailable Unavailable Problems This patient has no known problems. Allergies, Adverse Reactions, Alerts This patient has no known allergies or adverse reactions. Medications This patient has no known medications.
== END 2018-12-20 23:45 | disposition home or self-care (01) ==
LOC: ER 22:06
DX: O26.891 Other specified pregnancy related conditions, first trimester (principal); Z3A.01 Less than 8 weeks gestation of pregnancy; Z91.09 Other allergy status, other than to drugs and biological substances
CPT/HCPCS: 36415; 80048; 81015; 84443; 85025; 85379; 99284; J7030

== ENCOUNTER 2019-05-15 10:40 | Emergency (ER) | payer OTHER ==
--- OUTSIDE RECORDS SUMMARY | 2019-05-15 10:42 | XMS REPORT | Summary of Care ---
:1995 Author Organization [facility] Address [address] [place] [address] Care Team Providers Name Role Phone Den Arredondo NEWSPAPER ILLUSTRATOR Primary Care Provider Reason for Visit Reason Comments Care Encounter Details Date Type Department Care Team Description 03/14/2019 Routine [facility]- Den Arredondo Supervision of high risk , antepartum (Primary Dx); Visit EDMUNDO Navarrete Previous delivery affecting , antepartum; [address] (vaginal after ) trial; [place], [place] [address] [place], [place] [phone] Allergies No Known Allergiesdocumented as of this encounter (statuses as of 03/14/2019) Medications Medication Sig Dispensed Refills Start Date End Date Status vit Take 1 Packet by 30 Each 6 01/17/2019 Active 19-ojlf-nqyyz-dha mouth daily. (SELECT-OB + DHA) 29 mg iron-1 mg -250 mg combo packIndications: Supervision of high risk , antepartum Vit Take 1 tablet by 30 tablet 9 02/14/2019 Active Comb.10-Iron-FA mouth daily. (VITAFOL-OB) 65-1 mg TabIndications: Supervision of high risk , antepartum documented as of this encounter (statuses as of 03/14/2019) Active Problems Problem Noted Date Previous delivery affecting , antepartum 12/21/2018 Multiparity 12/21/2018 [place]ires (vaginal after ) trial 12/21/2018 Rubella non-immune status, antepartum 08/04/2012 Overview: Give Supervision of high risk , antepartum 06/09/2012 Overview: ICD10 Diagnosis Term Supervisor Hardboard Utility Estimated Date of Delivery Comments Yes 08/07/2019 Based on last menstrual period of 10/31/2018 (Approximate) documented as of this encounter (statuses as of 03/14/2019) Resolved Problems Problem Noted Date Resolved Date Well woman exam 05/10/2015 12/21/2018 Contraceptive management 05/10/2015 12/21/2018 Depo contraception 05/10/2015 12/21/2018 Screen for STD (sexually transmitted disease) 05/10/2015 12/21/2018 UTI (urinary tract infection) 02/25/2013 05/10/2015 Rubella immune 02/23/2013 05/10/2015 Surveillance of previously prescribed contraceptive pill 02/22/20132015 Routine follow-up 01/24/2013 05/10/2015 Other general counseling and advice for contraceptive 01/24/2013 02/22/2013 management Disruption of wound, 01/24/2013 02/22/2013 Pain pelvic 01/24/2013 02/22/2013 Other threatened labor, antepartum 12/24/2012 01/24/2013 Breech presentation 12/23/2012 01/24/2013 Malposition or malpresentation of fetus, antepartum 12/21/2012 01/24/2013 Overview: ICD10 Diagnosis Term Supervisor Hardboard Utility Pubic bone pain 12/21/2012 01/24/2013 Flu vaccine need 11/04/2012 01/24/2013 Overview: Given 11/04/2012 Antepartum anemia 10/22/2012 02/23/2013 Overview: ICD10 Diagnosis Term Supervisor Hardboard Utility Abnormal maternal glucose tolerance, antepartum 10/22/2012 01/24/2013 Overview: 1 hr- 136, Needs 3 hr ------ Normal. Tinea corporis 09/01/2012 01/24/2013 Immune to varicella 07/07/2012 05/10/2015 Not immune to rubella 06/10/2012 02/23/2013 Overview: Equiv. Give pospartum. ICD10 Diagnosis Term Supervisor Hardboard Utility Teen 06/09/2012 01/24/2013 Overview: Partner age 17; no coersion Seasonal allergies 06/02/2012 01/24/2013 documented as of this encounter (statuses as of 03/14/2019) Immunizations Name Administration Dates Next Due HPV9 11/07/2015, 08/08/2015, 05/10/2015 Influenza Virus Vaccine 11/04/2012 MMR 01/03/2013 Rubella 06/07/2012 Tdap 10/21/2012, 11/10/2011 Varicella (varivax)(chicken pox) 06/07/2012 documented as of this encounter Social History Tobacco Use Types Packs/Day Years Used Date Never Smoker Smokeless Tobacco: Never Used Alcohol Use Drinks/Week oz/Week Comments No 0 Standard drinks or equivalent 0.0 Estimated Date of Delivery Comments Yes 08/07/2019 Based on last menstrual period of 10/31/2018 (Approximate) Sex Assigned at Date Recorded Not on file Job Start Date Occupation Industry Not on file Not on file Not on file Travel History Travel Start Travel End No recent travel history available. documented as of this encounter Last Filed Vital Signs Vital Sign Reading Time Taken Comments Blood Pressure 126/74 03/14/2019 9:14 AM OVERHEAD LINE WORKER Pulse 104 03/14/2019 9:14 AM OVERHEAD LINE WORKER Temperature 36.9 C (98.5 F) 03/14/2019 9:14 AM OVERHEAD LINE WORKER Respiratory Rate 16 03/14/2019 9:14 AM OVERHEAD LINE WORKER Oxygen Saturation - - Inhaled Oxygen Concentration - - Weight 82.1 kg (181 lb) 03/14/2019 9:14 AM OVERHEAD LINE WORKER Height 167.6 cm (5' 6") 03/14/2019 9:14 AM OVERHEAD LINE WORKER Body Mass Index 29.21 03/14/2019 9:14 AM OVERHEAD LINE WORKER documented in this encounter Progress Notes Den Arredondo, NEWSPAPER ILLUSTRATOR - 03/14/2019 8:45 AM CST Chief complaint: Chief Complaint Patient presents with Care HPI CC: Follow Up Visit [place] Smith is a 23 year old, , /White female. Patient's last menstrual periodwas 10/31/2018 (approximate). She is 19w1d with an intrauterine . Her estimated date of delivery is 08/07/2019, by Last Menstrual Period. She has no complaints today. She reports +FM and denies contractions, LOF and bleeding today. Patient denies current or past physical, sexual or emotional abuse. Histories OB History Para Term AB Living 2 1 1 1 SAB TAB Ectopic Multiple Live Births 1 # Outcome Date GA Lbr Hunter/2nd Weight Sex Delivery Anes PTL Lv 2 Current 1 Term 01/01/13 8 lb 10 oz (3.912 kg) M CS-LTranv N JEFFREY Comments: System Generated. Please review and update details. Past Medical History: Diagnosis Date Abnormal maternal glucose tolerance, antepartum 10/22/2012 Anemia, antepartum(648.23) 10/22/2012 with Screen for STD (sexually transmitted disease) 05/10/2015 Family History Problem Relation Age of Onset Cancer Maternal Aunt 59 lung Arthritis Father No Significant Medical Problems Mother No Significant Medical Problems Sister No Significant Medical Problems Brother No Significant Medical Problems Maternal Grandmother No Significant Medical Problems Maternal Grandfather No Significant Medical Problems Paternal Grandmother No Significant Medical Problems Paternal Grandfather Asthma NoFHx Colon Cancer NoFHx Ovarian Cancer NoFHx Uterine Cancer NoFHx Depression NoFHx Diabetes NoFHx Heart NoFHx Genetic NoFHx High cholesterol NoFHx Mental retardation NoFHx Neurological NoFHx Osteoporosis NoFHx Hypertension NoFHx Psychiatry NoFHx Family Status Relation Name Status MAunt Fa Alive Mo Alive Sis Alive Bro Alive MUnc Alive PAunt Alive PUnc Alive MGMo MGFa PGMo Alive PGFa Alive NoFHx (Not Specified) Past Surgical History: Procedure Laterality Date ANTEPARTUM HEAD MANIPULATION 12/23/2012 SECTION 01/01/2013 SECTION 01/01/2013 Surgeon: Karyn Sherman MD; Location: [facility] Social History Socioeconomic History Marital status: Single Spouse name: Not on file Number of children: 0 Years of education: 9 Highest education level: Not on file Occupational History Not on file Social Needs Financial resource strain: Not on file Food insecurity: Worry: Not on file Inability: Not on file Transportation needs: Medical: Not on file Non-medical: Not on file Tobacco Use Smoking status: Never Smoker Smokeless tobacco: Never Used Substance and Sexual Activity Alcohol use: No Alcohol/week: 0.0 standard drinks Drug use: No Sexual activity: Yes Partners: Male control/protection: None Comment: last sexual intercourse 12/21/2018 Lifestyle Physical activity: Days per week: Not on file Minutes per session: Not on file Stress: Not on file Relationships Social connections: Talks on phone: Not on file Gets together: Not on file Attends confucianist service: Not on file Active member of club or organization: Not on file Attends meetings of clubs or organizations: Not on file Relationship status: Not on file Intimate partner violence: Fear of current or ex partner: Not on file Emotionally abused: Not on file Physically abused: Not on file Forced sexual activity: Not on file Other Topics Concern Service Not Asked Blood Transfusions No Caffeine Concern Not Asked Occupational Exposure Not Asked Hobby Hazards Not Asked Sleep Concern Not Asked Stress Concern Not Asked Weight Concern Not Asked Special Diet Not Asked Back Care Not Asked Exercise Not Asked Bike Helmet Not Asked Seat Belt Not Asked Self-Exams Not Asked Social History Narrative Pt states her confucianist preference is Muslim Lives with roommate and child No domestic violence or abuse Patient has 1 puppy. Social History Substance and Sexual Activity Sexual Activity Yes Partners: Male control/protection: None Comment: last sexual intercourse 12/21/2018 Labs No new labs Radiology Radiology pending. Allergies [place] has No Known Allergies. Medications [place] has a current medication list which includes the following prescription(s) : vit comb.10-iron-fa and vit 84-bill-jfqve-dha. Review of Systems Eyes: Negative for visual disturbance. Cardiovascular: Negative for leg swelling. Gastrointestinal: Negative for abdominal pain, nausea and vomiting. Genitourinary: Negative for vaginal bleeding, vaginal discharge and pelvic pain. Neurological: Negative for headaches. BP 126/74 (BP Location: Right arm, Patient Position: Sitting, BP CUFF SIZE: Adult Medium) | Pulse 104 | Temp 36.9 C (98.5 F) (Oral) | Resp 16 | Ht 5 ' 6" (1.676 m) | Wt 181 lb (82.1 kg) | LMP 10/31/2018 (Approximate) | BMI 29.21 kg/m Pregravid BMI: 28.3 Physical Exam PHYSICAL: General Exam: Neurological: Normal Abdomen: Normal Extremities: Normal Pelvic Exam: Uterus: 18cm Weeks Assessment/Plan Supervision of high risk , antepartum (primary encounter diagnosis) Previous delivery affecting , antepartum [place] (vaginal after ) trial Multiparity Comment: Routine Visit Plan: POCT URINALYSIS W SPECIFIC GRAVITY Denies zika virus risk, signs and symptoms such as fever,rash,joint pain, conjunctivitis (red eyes), muscle pain, headaches; outside [place] travel to areas affected by zika, and FOB exposure to zika.Educated on use of mosquito repellent. Return to clinic in 4 weeks. Discussed treatment options. Medications as ordered. Reviewed patient instructions and provided printed copy. This visit did not involve counseling and coordination that comprised more than 50% of the visit time. EDMUNDO Wyman 03/14/2019 10:27 AM documented in this encounter Plan of Treatment Date Type Specialty Care Team Description 03/14/2019 Pile Trimmer Visit Maternal Den Arredondo, Medicine NEWSPAPER ILLUSTRATOR [address] [place] [address] [phone] 04/11/2019 Routine Visit OB Satellites Den Arredondo, NEWSPAPER ILLUSTRATOR [address] [place] [address] [phone] Health Maintenance Due Date Last Done Comments MENINGOCOCCAL B VACCINES (1 12/21/2019 Postponed from of 2 - Risk Bexsero 2-dose 2006 ( or series) ) CHLAMYDIA SCREENING 12/22/2019 12/21/2018, 05/10/2015, 05/09/2014, Additional history exists INFLUENZA VACCINE (#1) 2019 11/04/2012 Postponed from 10/17/2018 (Refused) PAP SMEAR 12/21/2021 12/21/2018 DTaP,Tdap,and Td Vaccines 10/21/2022 10/21/2012, 11/10/2011 (3 - Td) HPV VACCINES Completed 11/07/2015, 08/08/2015, 05/10/2015 MENINGOCOCCAL VACCINE Aged Out No longer eligible based on patient's age to complete this topic PNEUMOCOCCAL 0-64 YEARS Aged Out No longer eligible COMBINED SERIES based on patient's age to complete this topic documented as of this encounter Procedures Procedure Name Priority Date/Time Associated Diagnosis Comments POCT URINALYSIS Routine 03/14/2019 9:14 AM Supervision of high Results for this OVERHEAD LINE WORKER risk , procedure are in antepartum the results section. documented in this encounter Results POCT URINALYSIS W SPECIFIC GRAVITY (03/14/2019 9:14 AM OVERHEAD LINE WORKER) POCT U SP GRAV . 1.005 - 1.025 mg/dl POCT PH U . 5 - 8 mg/dl POCT U LEUK EST . Negative - Negative POCT U NIT . Negative - Negative POCT U PROT trace Negative - Negative POCT U GLU neg Negative - Negative POCT U KETONE . Negative - Negative POCT U UROBILI . 0.2 - 1 mg/dl POCT U BILI . Negative - Negative POCT U BLD . Negative - Negative POCT U COLOR POCT U APPEAR Specimen Urine - URINE, CLEAN CATCH documented in this encounter Visit Diagnoses Diagnosis Supervision of high risk , antepartum - Primary Previous delivery affecting , antepartum Previous delivery, antepartum condition or complication [place] (vaginal after ) trial Previous delivery, unspecified as to episode of care or not applicable Multiparity documented in this encounter Insurance Payer Benefit Plan / Subscriber ID Effective Phone Address Type Group Dates [facility] xxxxxxxxx 2018-Pres [address] Medicaid HEALTH CHOICE - HEALTH CHOICE [facility] [id number] [facility] MEDICAID [place], [place] MEDICAID [phone] documented as of this encounter
--- OUTSIDE RECORDS SUMMARY | 2019-05-15 10:42 | XMS REPORT ---
:1995 Author Organization [facility] Address [address] [place] [address] Dr. Starks [address] [place] [id number] Care Team Providers Name Role Phone Unavailable Unavailable Unavailable Problems This patient has no known problems. Allergies, Adverse Reactions, Alerts This patient has no known allergies or adverse reactions. Medications This patient has no known medications.
--- OUTSIDE RECORDS SUMMARY | 2019-05-15 10:42 | XMS REPORT | Summary of Care ---
:1995 Author Organization [facility] Address [address] [place] [address] Care Team Providers Name Role Phone Den Arredondo VENTILATOR SPECIALIST Primary Care Provider Reason for Visit Reason Comments Care Encounter Details Date Type Department Care Team Description 03/14/[address] [facility] [place] [place]- Den Arredondo Supervision of high risk , antepartum (Primary Dx); Visit EDMUNDO Navarrete Previous delivery affecting , antepartum; [address] (vaginal after ) trial; [place], [place] [address] [place], [place] [phone] [address] Allergies No Known Allergiesdocumented as of this encounter (statuses as of 03/14/2019) Medications Medication Sig Dispensed Refills Start Date End Date Status vit Take 1 Packet by 30 Each 6 01/17/2019 Active 46-dkzi-zdjoh-dha mouth daily. (SELECT-OB + DHA) 29 mg [...] , antepartum 06/09/2012 Overview: ICD10 Diagnosis Term Technical Training Specialist Utility Estimated Date of Delivery Comments Yes [...] antepartum 12/21/2012 01/24/2013 Overview: ICD10 Diagnosis Term Technical Training Specialist Utility Pubic bone pain 12/21/2012 01/24/2013 Flu vaccine need 11/04/2012 01/24/2013 Overview: Given 11/04/2012 Antepartum anemia 10/22/2012 02/23/2013 Overview: ICD10 Diagnosis Term Technical Training Specialist Utility Abnormal maternal glucose tolerance, antepartum 10/22/2012 01/24/2013 Overview: 1 hr- 136, Needs 3 hr ------ Normal. Tinea corporis 09/01/2012 01/24/2013 Immune to varicella 07/07/2012 05/10/2015 Not immune to rubella 06/10/2012 02/23/2013 Overview: Equiv. Give pospartum. ICD10 Diagnosis Term Technical Training Specialist Utility Teen 06/09/2012 01/24/2013 Overview: Partner age [...] Comments Blood Pressure 126/74 03/14/2019 9:14 AM OIL FIELD PIPELINE SUPERVISOR Pulse 104 03/14/2019 9:14 AM OIL FIELD PIPELINE SUPERVISOR Temperature 36.9 C (98.5 F) 03/14/2019 9:14 AM OIL FIELD PIPELINE SUPERVISOR Respiratory Rate 16 03/14/2019 9:14 AM OIL FIELD PIPELINE SUPERVISOR Oxygen Saturation - - Inhaled Oxygen Concentration - - Weight 82.1 kg (181 lb) 03/14/2019 9:14 AM OIL FIELD PIPELINE SUPERVISOR Height 167.6 cm (5' 6") 03/14/2019 9:14 AM OIL FIELD PIPELINE SUPERVISOR Body Mass Index 29.21 03/14/2019 9:14 AM OIL FIELD PIPELINE SUPERVISOR documented in this encounter Progress Notes Den Arredondo, VENTILATOR SPECIALIST - 03/14/2019 8:45 AM CST Chief complaint: [...] file Gets together: Not on file Attends tenriism service: Not on file Active member of [...] Asked Social History Narrative Pt states her tenriism preference is Quaker Lives with roommate and child No domestic violence or abuse Patient has 1 puppy. Social History Substance and Sexual Activity Sexual Activity Yes Partners: Male control/protection: None Comment: last sexual intercourse 12/21/2018 Labs No new labs Radiology Radiology pending. Allergies [place] has No Known Allergies. Medications [place] has a current medication list which includes the following prescription(s) : vit comb.10-iron-fa and vit 08-alvc-gwkrb-dha. Review of Systems Eyes: Negative for visual [...] Date Type Specialty Care Team Description 03/14/2019 Assembler Fitter Visit Maternal Den Arredondo, Medicine VENTILATOR SPECIALIST [address] [place] [address] [phone] 04/11/2019 Routine Visit OB Satellites Den Arredondo, VENTILATOR SPECIALIST [address] [place] [address] [phone] Health Maintenance Due Date Last Done Comments [...] AM Supervision of high Results for this OIL FIELD PIPELINE SUPERVISOR risk , procedure are in antepartum the results section. documented in this encounter Results POCT URINALYSIS W SPECIFIC GRAVITY (03/14/2019 9:14 AM OIL FIELD PIPELINE SUPERVISOR) POCT U SP GRAV . 1.005 - [...] ID Effective Phone Address Type Group Dates [facility] xxxxxxxxx 2018-Pres [address] Medicaid HEALTH CHOICE - HEALTH CHOICE [facility] [id number] [place] MEDICAID [place], [place] MEDICAID [phone] documented as of this encounter
--- OUTSIDE RECORDS SUMMARY | 2019-05-15 10:43 | XMS REPORT | Summary of Care ---
:1995 Author Organization [facility] Address [address] [place] [address] Care Team Providers Name Role Phone Den Arredondo Primary Care Provider Encounter Details Date Type Department Care Team Description 03/15/2019 Abstract [facility] Den Arredondo, INSOLE AND OUTSOLE SPLITTER [address] [facility] [address] [place] [address] [place] [address] [phone] Allergies No Known Allergiesdocumented as of this encounter (statuses as of 03/15/2019) Medications Medication Sig Dispensed Refills Start Date End Date Status vit Take 1 Packet by 30 Each 6 01/17/2019 Active 62-tirl-zwjmm-dha mouth daily. (SELECT-OB + DHA) 29 mg iron-1 mg -250 mg combo packIndications: Supervision of high risk , antepartum Vit Take 1 tablet by 30 tablet 9 02/14/2019 Active Comb.10-Iron-FA mouth daily. (VITAFOL-OB) 65-1 mg TabIndications: Supervision of high risk , antepartum documented as of this encounter (statuses as of 03/15/2019) Active Problems Problem Noted Date Low lying placenta, antepartum 03/15/2019 Previous delivery affecting , antepartum 12/21/2018 Multiparity 12/21/2018 [place]ires (vaginal after ) trial 12/21/2018 Rubella non-immune status, antepartum 08/04/2012 Overview: Give Supervision of high risk , antepartum 06/09/2012 Overview: ICD10 Diagnosis Term Buffer Chrome Utility Estimated Date of Delivery Comments Yes 08/07/2019 Based on last menstrual period of 10/31/2018 (Approximate) documented as of this encounter (statuses as of 03/15/2019) Resolved Problems Problem Noted Date Resolved Date [...] antepartum 12/21/2012 01/24/2013 Overview: ICD10 Diagnosis Term Buffer Chrome Utility Pubic bone pain 12/21/2012 01/24/2013 Flu vaccine need 11/04/2012 01/24/2013 Overview: Given 11/04/2012 Antepartum anemia 10/22/2012 02/23/2013 Overview: ICD10 Diagnosis Term Buffer Chrome Utility Abnormal maternal glucose tolerance, antepartum 10/22/2012 01/24/2013 Overview: 1 hr- 136, Needs 3 hr ------ Normal. Tinea corporis 09/01/2012 01/24/2013 Immune to varicella 07/07/2012 05/10/2015 Not immune to rubella 06/10/2012 02/23/2013 Overview: Equiv. Give pospartum. ICD10 Diagnosis Term Buffer Chrome Utility Teen 06/09/2012 01/24/2013 Overview: Partner age 17; no coersion Seasonal allergies 06/02/2012 01/24/2013 documented as of this encounter (statuses as of 03/15/2019) Immunizations Name Administration Dates Next Due HPV9 [...] of this encounter Last Filed Vital Signs Not on filedocumented in this encounter Plan of Treatment Date Type Specialty Care Team Description 04/11/2019 Routine Visit OB Satellites Den Arredondo, INSOLE AND OUTSOLE SPLITTER [address] [place] [address] [phone] 06/13/2019 Senior Oracle Database Developer Visit Maternal Medicine 06/13/2019 Senior Oracle Database Developer Visit Maternal Medicine Health Maintenance Due Date Last Done Comments [...] this topic documented as of this encounter Results Not on filedocumented in this encounter Insurance Payer Benefit Plan / Subscriber ID Effective Phone Address Type Group Dates [facility] xxxxxxxxx 2018-Pres [address] Medicaid HEALTH CHOICE - HEALTH CHOICE [facility] [id number] MANAGED MEDICAID [place], [place] MED[place]ID [phone] documented as of this encounter
--- OUTSIDE RECORDS SUMMARY | 2019-05-15 10:43 | XMS REPORT | Summary of Care ---
:1995 Author Organization [facility] Address [address] [place] [id number] Care Team Providers Name Role Phone Den Arredondo Primary Care Provider Reason for Visit Reason Comments Care Encounter Details Date Type Department Care Team Description 04/11/2019 Routine [facility]- Den Arredondo Supervision of high risk , antepartum (Primary Dx); Visit EDMUNDO Navarrete Previous delivery affecting , antepartum; [address] (vaginal after ) trial; [place], [place]; [address] [place], [place] Low lying placenta, antepartum [phone] Allergies No Known Allergiesdocumented as of this encounter (statuses as of 04/11/2019) Medications Medication Sig Dispensed Refills Start Date End Date Status vit Take 1 Packet by 30 Each 6 01/17/2019 Active 83-pdvl-iztlb-dha mouth daily. (SELECT-OB + DHA) 29 mg iron-1 mg -250 mg combo packIndications: Supervision of high risk , antepartum Vit Take 1 tablet by 30 tablet 9 02/14/2019 Active Comb.10-Iron-FA mouth daily. (VITAFOL-OB) 65-1 mg TabIndications: Supervision of high risk , antepartum vit Take 1 Packet by 30 Each 6 04/11/2019 Active 12-wmld-qkezv-dha mouth daily. (SELECT-OB + DHA) 29 mg iron-1 mg -250 mg combo packIndications: Supervision of high risk , antepartum documented as of this encounter (statuses as of 04/11/2019) Active Problems Problem Noted Date Low lying placenta, antepartum 03/15/2019 Previous delivery affecting , antepartum 12/21/2018 Multip[place] 12/21/2018 [place] (vaginal after ) trial 12/21/2018 Rubella non-immune status, antepartum 08/04/2012 Overview: Give Supervision of high risk , antepartum 06/09/2012 Overview: ICD10 Diagnosis Term Catering Assistant Utility Estimated Date of Delivery Comments Yes 08/07/2019 Based on last menstrual period of 10/31/2018 (Approximate) documented as of this encounter (statuses as of 04/11/2019) Resolved Problems Problem Noted Date Resolved Date [...] antepartum 12/21/2012 01/24/2013 Overview: ICD10 Diagnosis Term Catering Assistant Utility Pubic bone pain 12/21/2012 01/24/2013 Flu vaccine need 11/04/2012 01/24/2013 Overview: Given 11/04/2012 Antepartum anemia 10/22/2012 02/23/2013 Overview: ICD10 Diagnosis Term Catering Assistant Utility Abnormal maternal glucose tolerance, antepartum 10/22/2012 01/24/2013 Overview: 1 hr- 136, Needs 3 hr ------ Normal. Tinea corporis 09/01/2012 01/24/2013 Immune to varicella 07/07/2012 05/10/2015 Not immune to rubella 06/10/2012 02/23/2013 Overview: Equiv. Give pospartum. ICD10 Diagnosis Term Catering Assistant Utility Teen 06/09/2012 01/24/2013 Overview: Partner age 17; no coersion Seasonal allergies 06/02/2012 01/24/2013 documented as of this encounter (statuses as of 04/11/2019) Immunizations Name Administration Dates Next Due HPV9 [...] Sign Reading Time Taken Comments Blood Pressure 114/68 04/11/2019 9:28 AM BOOK COVERER Pulse 92 04/11/2019 9:28 AM BOOK COVERER Temperature 36.6 C (97.9 F) 04/11/2019 9:28 AM BOOK COVERER Respiratory Rate 16 04/11/2019 9:28 AM BOOK COVERER Oxygen Saturation - - Inhaled Oxygen Concentration - - Weight 84.1 kg (185 lb 5 oz) 04/11/2019 9:28 AM BOOK COVERER Height 167.6 cm (5' 6") 04/11/2019 9:28 AM BOOK COVERER Body Mass Index 29.91 04/11/2019 9:28 AM BOOK COVERER documented in this encounter Progress Notes Den Arredondo, EDMUNDO - 04/11/2019 9:30 AM CST Chief complaint: Chief Complaint Patient presents with Care HPI CC: Follow Up Visit [place] Smith is a 24 year old, , /White female. Patient's last menstrual periodwas 10/31/2018 (approximate). She is 23w1d with an intrauterine . Her estimated date of delivery is 08/07/2019, by Last Menstrual Period. She has no complaints today. She reports +FM and denies contractions, LOF and bleeding today. Will review labs and f/u as needed. OB/ER , PIH, PTL and movement precautions given. Patient denies current or past physical, sexual [...] file Gets together: Not on file Attends jain service: Not on file Active member of [...] Asked Social History Narrative Pt states her jain preference is [place] Lives with roommate and child No domestic violence or abuse Patient has 1 puppy. Social History Substance and Sexual Activity Sexual Activity Yes Partners: Male control/protection: None Comment: last sexual intercourse 12/21/2018 Labs No new labs Radiology No new radiology. Allergies [place] has No Known Allergies. Medications [place] has a current medication list which includes the following prescription(s) : vit 55-jtwi-sesdz-dha, vit comb.10-iron-fa, and vit 17-inty-wmnzj-dha. Review of Systems Eyes: Negative for visual disturbance. Cardiovascular: Negative for leg swelling. Gastrointestinal: Negative for abdominal pain, nausea and vomiting. Genitourinary: Negative for vaginal bleeding, vaginal discharge and pelvic pain. Neurological: Negative for headaches. BP 114/68 (BP Location: Right arm, Patient Position: Sitting, BP CUFF SIZE: Adult Medium) | Pulse 92 | Temp 36.6 C (97.9 F) (Oral) | Resp 16 | Ht 5 ' 6" (1.676 m) | Wt 185 lb 5 oz (84.1 kg) | LMP 10/31/2018 (Approximate) | BMI 29.91 kg/m Pregravid BMI: 28.3 Physical Exam PHYSICAL: General Exam: Neurological: Normal Abdomen: Normal Extremities: Normal Pelvic Exam: Uterus: 23cm Weeks Assessment/Plan Supervision of high risk , antepartum (primary encounter diagnosis) Previous delivery affecting , antepartum [place] (vaginal after ) trial Multiparity Comment:Routine Visit Plan: POCT URINALYSIS W SPECIFIC GRAVITY, Glucose 1 Hour Post Prandial, CBC with Differential, vit 64-uefy-rfzcy-dha (SELECT-OB + DHA) 29 mg iron-1 mg -250 mg combo pack Denies zika virus risk, signs and symptoms such as fever,rash,joint pain, conjunctivitis (red eyes), muscle pain, headaches; outside [place] travel to areas affected by zika, and FOB exposure to zika. Educated on use of mosquito repellent. Low lying placenta, antepartum Comment:Low Lying Placenta noted on USG 03/15 Needs 26wj labs at [place](ordered) Plan: Follow up USG is needed Return to clinic in 3 weeks. Discussed treatment options. Medications as ordered. Reviewed patient instructions and provided printed copy. This visit did not involve counseling and coordination that comprised more than 50% of the visit time. EDMUNDO Wyman 04/11/2019 10:23 AM documented in this encounter Plan of Treatment Date Type Specialty Care Team Description 05/02/2019 Routine Visit OB Satellites Den Arredondo FNP [address] [place] [address] [phone] 06/13/2019 Steward/Stewardess Smoke Room Visit Maternal Medicine 06/13/2019 Steward/Stewardess Smoke Room Visit Maternal Medicine Name Type Priority Associated Diagnoses Order Schedule Glucose 1 Hour Post LAB Routine Supervision of high risk Expected: 2019, Prandial , antepartum Expires: 04/11/2020 CBC with Differential LAB Routine Supervision of high risk Expected: 2019, , antepartum Expires: 04/11/2020 Health Maintenance Due Date Last Done Comments MENINGOCOCCAL B VACCINES (1 12/21/2019 Postponed from of 2 - Risk Bexsero 2-dose 2006 ( or series) ) CHLAMYDIA SCREENING 12/22/2019 12/21/2018, 05/10/2015, 05/09/2014, Additional history exists INFLUENZA VACCINE (#1) 2019 11/04/2012 Postponed from 10/17/2018 (Refused) PAP SMEAR 12/21/2021 12/21/2018 DTaP,Tdap,and Td Vaccines 10/21/2022 10/21/2012, 11/10/2011 (3 - Td) HPV VACCINES Completed 11/07/2015, 08/08/2015, 05/10/2015 PNEUMOCOCCAL 0-64 YEARS Aged Out No longer eligible COMBINED SERIES based on patient's age to complete this topic documented as of this encounter Procedures Procedure Name Priority Date/Time Associated Diagnosis Comments POCT URINALYSIS Routine 04/11/2019 9:40 AM Supervision of high Results for this BOOK COVERER risk , procedure are in antepartum the results section. documented in this encounter Results POCT URINALYSIS W SPECIFIC GRAVITY (04/11/2019 9:40 AM BOOK COVERER) POCT U SP GRAV . 1.005 - 1.025 mg/dl POCT PH U . 5 - 8 mg/dl POCT U LEUK EST . Negative - Negative POCT U NIT . Negative - Negative POCT U PROT trace Negative - Negative POCT U GLU negative Negative - Negative POCT U KETONE . [...] episode of care or not applicable [place] Low lying placenta, antepartum documented in this encounter Insurance Payer Benefit Plan / Subscriber ID Effective Phone Address Type Group Dates [facility] xxxxxxxxx 2018-Pres [address] Medicaid HEALTH CHOICE - HEALTH CHOICE [facility] [id number] MANAGED MEDICAID [place], [place]ID [id number] documented as of this encounter
--- OUTSIDE RECORDS SUMMARY | 2019-05-15 10:43 | XMS REPORT | Summary of Care ---
:1995 Author Organization [facility] Address [address] [place] [address] Care Team Providers Name Role Phone Den Arredondo TIN PLATER Primary Care Provider Reason for Visit Reason Comments Care Encounter Details Date Type Department Care Team Description 03/14/2019 Routine [facility]- Den Arredondo Supervision of high risk , antepartum (Primary Dx); Visit EDMUNDO Navarrete Previous delivery affecting , antepartum; [address] (vaginal after ) trial; [place], [place] [address] [place], [place] [phone] [address] Allergies No Known Allergiesdocumented as of this encounter (statuses as of 03/14/2019) Medications Medication Sig Dispensed Refills Start Date End Date Status vit Take 1 Packet by 30 Each 6 01/17/2019 Active 63-xtzk-rprqr-dha mouth daily. (SELECT-OB + DHA) 29 mg [...] , antepartum 06/09/2012 Overview: ICD10 Diagnosis Term Shipping And Receiving Specialist Utility Estimated Date of Delivery Comments [...] antepartum 12/21/2012 01/24/2013 Overview: ICD10 Diagnosis Term Shipping And Receiving Specialist Utility Pubic bone pain 12/21/2012 01/24/2013 Flu vaccine need 11/04/2012 01/24/2013 Overview: Given 11/04/2012 Antepartum anemia 10/22/2012 02/23/2013 Overview: ICD10 Diagnosis Term Shipping And Receiving Specialist Utility Abnormal maternal glucose tolerance, antepartum 10/22/2012 01/24/2013 Overview: 1 hr- 136, Needs 3 hr ------ Normal. Tinea corporis 09/01/2012 01/24/2013 Immune to varicella 07/07/2012 05/10/2015 Not immune to rubella 06/10/2012 02/23/2013 Overview: Equiv. Give pospartum. ICD10 Diagnosis Term Shipping And Receiving Specialist Utility Teen 06/09/2012 01/24/2013 Overview: Partner [...] Comments Blood Pressure 126/74 03/14/2019 9:14 AM OPERATIONS OFFICER AFLOAT Pulse 104 03/14/2019 9:14 AM OPERATIONS OFFICER AFLOAT Temperature 36.9 C (98.5 F) 03/14/2019 9:14 AM OPERATIONS OFFICER AFLOAT Respiratory Rate 16 03/14/2019 9:14 AM OPERATIONS OFFICER AFLOAT Oxygen Saturation - - Inhaled Oxygen Concentration - - Weight 82.1 kg (181 lb) 03/14/2019 9:14 AM OPERATIONS OFFICER AFLOAT Height 167.6 cm (5' 6") 03/14/2019 9:14 AM OPERATIONS OFFICER AFLOAT Body Mass Index 29.21 03/14/2019 9:14 AM OPERATIONS OFFICER AFLOAT documented in this encounter Progress Notes Den Arredondo, TIN PLATER - 03/14/2019 8:45 AM CST Chief complaint: [...] file Gets together: Not on file Attends buddhist service: Not on file Active member of [...] Asked Social History Narrative Pt states her buddhist preference is Yazidi Lives with roommate and child No domestic violence or abuse Patient has 1 puppy. Social History Substance and Sexual Activity Sexual Activity Yes Partners: Male control/protection: None Comment: last sexual intercourse 12/21/2018 Labs No new labs Radiology Radiology pending. Allergies [place] has No Known Allergies. Medications [place] has a current medication list which includes the following prescription(s) : vit comb.10-iron-fa and vit 88-tpgv-uktco-dha. Review of Systems Eyes: Negative for visual [...] Date Type Specialty Care Team Description 03/14/2019 Business Practices Supervisor Visit Maternal Den Arredondo, Medicine TIN PLATER [address] [place] [address] [phone] 04/11/2019 Routine Visit OB Satellites Den Arredondo, TIN PLATER [address] [place] [address] [phone] Health Maintenance Due Date Last Done Comments [...] AM Supervision of high Results for this OPERATIONS OFFICER AFLOAT risk , procedure are in antepartum the results section. documented in this encounter Results POCT URINALYSIS W SPECIFIC GRAVITY (03/14/2019 9:14 AM OPERATIONS OFFICER AFLOAT) POCT U SP GRAV . 1.005 - [...] ID Effective Phone Address Type Group Dates [facility] xxxxxxxxx 2018-Pres [address] Medicaid HEALTH CHOICE - HEALTH CHOICE [facility] [id number] [facility] MEDICAID [place], [place] MEDICAID [phone] documented as of this encounter
--- OUTSIDE RECORDS SUMMARY | 2019-05-15 10:43 | XMS REPORT | Summary of Care ---
:1995 Author Organization [facility] Address [address] [place] [id number] Care Team Providers Name Role Phone Den Arredondo Primary Care Provider Reason for Visit Reason Comments Care Encounter Details Date Type Department Care Team Description 04/11/2019 Routine [facility]- Den Arredondo Supervision of high risk , antepartum (Primary Dx); Visit EDMUNDO Navarrete Previous delivery affecting , antepartum; [address] (vaginal after ) trial; [place], [place]; [address] [place], [place] Low lying placenta, antepartum [phone] Allergies No Known Allergiesdocumented as of this encounter (statuses as of 04/11/2019) Medications Medication Sig Dispensed Refills Start Date End Date Status vit Take 1 Packet by 30 Each 6 01/17/2019 Active 17-xsrl-ytubn-dha mouth daily. (SELECT-OB + DHA) 29 mg iron-1 mg -250 mg combo packIndications: Supervision of high risk , antepartum Vit Take 1 tablet by 30 tablet 9 02/14/2019 Active Comb.10-Iron-FA mouth daily. (VITAFOL-OB) 65-1 mg TabIndications: Supervision of high risk , antepartum vit Take 1 Packet by 30 Each 6 04/11/2019 Active 43-zdmz-ejatt-dha mouth daily. (SELECT-OB + DHA) 29 mg [...] , antepartum 06/09/2012 Overview: ICD10 Diagnosis Term Wool Spotter Utility Estimated Date of Delivery Comments Yes [...] antepartum 12/21/2012 01/24/2013 Overview: ICD10 Diagnosis Term Wool Spotter Utility Pubic bone pain 12/21/2012 01/24/2013 Flu vaccine need 11/04/2012 01/24/2013 Overview: Given 11/04/2012 Antepartum anemia 10/22/2012 02/23/2013 Overview: ICD10 Diagnosis Term Wool Spotter Utility Abnormal maternal glucose tolerance, antepartum 10/22/2012 01/24/2013 Overview: 1 hr- 136, Needs 3 hr ------ Normal. Tinea corporis 09/01/2012 01/24/2013 Immune to varicella 07/07/2012 05/10/2015 Not immune to rubella 06/10/2012 02/23/2013 Overview: Equiv. Give pospartum. ICD10 Diagnosis Term Wool Spotter Utility Teen 06/09/2012 01/24/2013 Overview: Partner age [...] Comments Blood Pressure 114/68 04/11/2019 9:28 AM CHIEF SCIENTIST Pulse 92 04/11/2019 9:28 AM CHIEF SCIENTIST Temperature 36.6 C (97.9 F) 04/11/2019 9:28 AM CHIEF SCIENTIST Respiratory Rate 16 04/11/2019 9:28 AM CHIEF SCIENTIST Oxygen Saturation - - Inhaled Oxygen Concentration - - Weight 84.1 kg (185 lb 5 oz) 04/11/2019 9:28 AM CHIEF SCIENTIST Height 167.6 cm (5' 6") 04/11/2019 9:28 AM CHIEF SCIENTIST Body Mass Index 29.91 04/11/2019 9:28 AM CHIEF SCIENTIST documented in this encounter Progress Notes Den [...] file Gets together: Not on file Attends lutheran service: Not on file Active member of [...] Asked Social History Narrative Pt states her lutheran preference is Oriental Orthodox Lives with roommate and child No domestic violence or abuse Patient has 1 puppy. Social History Substance and Sexual Activity Sexual Activity Yes Partners: Male control/protection: None Comment: last sexual intercourse 12/21/2018 Labs No new labs Radiology No new radiology. Allergies [place] has No Known Allergies. Medications [place] has a current medication list which includes the following prescription(s) : vit 41-iyuc-chrig-dha, vit comb.10-iron-fa, and vit 51-sqdh-vowkd-dha. Review of Systems Eyes: Negative for visual [...] Hour Post Prandial, CBC with Differential, vit 94-semn-bsacs-dha (SELECT-OB + DHA) 29 mg iron-1 mg -250 mg combo pack Denies zika virus risk, signs and symptoms such as fever,rash,joint pain, conjunctivitis (red eyes), muscle pain, headaches; outside [place] travel to areas affected by zika, and FOB exposure to zika. Educated on use of mosquito repellent. Low lying placenta, antepartum Comment:Low Lying Placenta noted on USG 03/15 Needs 26wj labs at [place](ordered) Plan: Follow up USG is needed Return [...] OB Satellites Den Arredondo FNP [address] [place] [address] [phone] 06/13/2019 Sumo Wrestler Visit Maternal Medicine 06/13/2019 Sumo Wrestler Visit Maternal Medicine Name Type Priority Associated [...] AM Supervision of high Results for this CHIEF SCIENTIST risk , procedure are in antepartum the results section. documented in this encounter Results POCT URINALYSIS W SPECIFIC GRAVITY (04/11/2019 9:40 AM CHIEF SCIENTIST) POCT U SP GRAV . 1.005 - [...] Type Group Dates [facility] xxxxxxxxx 2018-Pres [address] Medicaid HEALTH CHOICE - HEALTH CHOICE [facility] [id number] MANAGED MEDICAID [place], [place] MEDICAID [phone] documented as of this encounter
--- OUTSIDE RECORDS SUMMARY | 2019-05-15 10:44 | XMS REPORT | Summary of Care ---
:1995 Author Organization [facility] Address [address] [place] [id number] Care Team Providers Name Role Phone Den Arredondo Primary Care Provider Reason for Referral (Routine) Status Reason Specialty Diagnoses / Referred By Referred To Procedures Contact Contact New Request Maternal Diagnoses Low lying placenta, antepartum Den Arrdeondo Medicine Procedures CONSULT MATERNAL MEDICINE ULTRASOUND Preferred Location: EDMUNDO Navarrete [address] [place] [address] Reason for Visit Reason Comments Care Encounter Details Date Type Department Care Team Description 05/12/2019 Routine [facility]- Den Arredondo Supervision of high risk , antepartum (Primary Dx); Visit EDMUNDO Navarrete Previous delivery affecting , antepartum; 1108 [facility] [address] [facility] Desires (vaginal after ) trial; [facility] Multiparity; [address] [place], [place] Low lying placenta, antepartum; [phone] Obesity in [phone] Allergies No Known Allergiesdocumented as of this encounter (statuses as of 05/12/2019) Medications Medication Sig Dispensed Refills Start Date End Date Status vit Take 1 Packet by 30 Each 6 01/17/2019 Active 62-ortr-jommz-dha mouth daily. (SELECT-OB + DHA) 29 mg iron-1 mg -250 mg combo packIndications: Supervision of high risk , antepartum Vit Take 1 tablet by 30 tablet 9 02/14/2019 Active Comb.10-Iron-FA mouth daily. (VITAFOL-OB) 65-1 mg TabIndications: Supervision of high risk , antepartum vit Take 1 Packet by 30 Each 6 04/11/2019 Active 38-ltgo-botnh-dha mouth daily. 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 Utility Estimated Date of Delivery Comments Yes 08/07/2019 Based on last menstrual period of 10/31/2018 (Approximate) documented as of this encounter (statuses as of 05/12/2019) Resolved Problems Problem Noted Date Resolved Date [...] antepartum 12/21/2012 01/24/2013 Overview: ICD10 Diagnosis Term Hemstitching Machine Operator Utility Pubic bone pain 12/21/2012 01/24/2013 Flu vaccine need 11/04/2012 01/24/2013 Overview: Given 11/04/2012 Antepartum anemia 10/22/2012 02/23/2013 Overview: ICD10 Diagnosis Term 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 Tinea corporis 09/01/2012 01/24/2013 Immune to varicella 07/07/2012 05/10/2015 Not immune to rubella 06/10/2012 02/23/2013 Overview: Equiv. Give pospartum. ICD10 Diagnosis Term Hemstitching Machine Operator Utility Teen 06/09/2012 01/24/2013 Overview: Partner age 17; no coersion Seasonal allergies 06/02/2012 01/24/2013 documented as of this encounter (statuses as of 05/12/2019) Immunizations Name Administration Dates Next Due HPV9 [...] Sign Reading Time Taken Comments Blood Pressure 109/60 05/12/2019 9:35 AM CDT Pulse 79 05/12/2019 9:35 AM CDT Temperature 36.1 C (97 F) 05/12/2019 9:35 AM CDT Respiratory Rate 16 05/12/2019 9:35 AM CDT Oxygen Saturation - - Inhaled Oxygen Concentration - - Weight 86.4 kg (190 lb 6 oz) 05/12/2019 9:35 AM CDT Height 167.6 cm (5' 6") 05/12/2019 9:35 AM CDT Body Mass Index 30.73 05/12/2019 9:35 AM CDT documented in this encounter Progress Notes Den Arredondo, SYRUP MIXER ASSISTANT - 05/12/2019 9:30 AM CDT Chief complaint: Chief Complaint Patient presents with Care HPI CC: Follow Up Visit France Smith is a 24 year old, , /White female. Patient's last menstrual periodwas 10/31/2018 (approximate). She is 27w4d with an intrauterine . Her estimated date [...] Karyn Sherman MD; Location: [facility] DEL[facility]ERY [facility] Social History Socioeconomic History Marital status: Single [...] file Gets together: Not on file Attends restoration service: Not on file Active member of [...] Asked Social History Narrative Pt states her restoration preference is Restorationism Lives with roommate and child No domestic violence or abuse Patient has 1 puppy. Social History Substance and Sexual Activity Sexual Activity Yes Partners: Male control/protection: None Comment: last sexual intercourse 12/21/2018 Labs Labs are pending. Radiology No new radiology. Allergies [place] has No Known Allergies. Medications [place] has a current medication list which includes the following prescription(s) : vit 96-ciqh-ehopy-dha, vit comb.10-iron-fa, and vit 30-dwaw-gkwbg-dha. Review of Systems Eyes: Negative for visual disturbance. Cardiovascular: Negative for leg swelling. Gastrointestinal: Negative for abdominal pain, nausea and vomiting. Genitourinary: Negative for vaginal bleeding, vaginal discharge and pelvic pain. Neurological: Negative for headaches. BP 109/60 (BP Location: Right arm, Patient Position: Sitting, BP CUFF SIZE: Adult Medium) | Pulse 79 | Temp 36.1 C (97 F) (Oral) | Resp 16 | Ht 5' 6 " (1.676 m) | Wt 190 lb 6 oz (86.4 kg) | LMP 10/31/2018 (Approximate) | BMI 30.73 kg/m Pregravid BMI: 28.3 Physical Exam PHYSICAL: General Exam: Neurological: Normal Abdomen: Normal Extremities: Normal Pelvic Exam: Uterus: 28cm Weeks Assessment/Plan Supervision of high risk , antepartum (primary encounter diagnosis) Previous delivery affecting , antepartum Desires (vaginal after ) trial Multiparity Comment: Routine Visit Plan: Glucose 1 Hour Post Prandial, CBC with Differential, CBC WITH DIFFERENTIAL, POCT URINALYSIS W SPECIFIC GRAVITY, HIV 1/2 AG-AB WITH REFLEX, GALV ONLY - SYPHILIS IGG/IGM, TDAP VACCINE, >11 YRS, IM (Do not give before 20 weeks) Denies zika virus risk, signs and symptoms such as fever,rash,joint pain, conjunctivitis (red eyes), muscle pain, headaches; outside [place] travel to areas affected by zika, and FOB exposure to zika.Educated on use of mosquito repellent. Low lying placenta, antepartum Comment: Low Lying Placenta noted on USG 03/15 Plan: CONSULT MATERNAL MEDICINE ULTRASOUND Preferred Location: [place] Obesity in Comment: BMI: 30.73 Plan: Patient encouraged to limit weight gain and advised to eat healthy diet, fruits, vegetables, increased fiber and water intake and protein low in fat. Encouraged exercise for 30 min everyday; begin regimen with caution to prevent injury. Encouraged to decrease BMI to <25. Return to clinic in 2 weeks via [employer]. Discussed treatment options. Medications as ordered. Reviewed patient instructions and provided printed copy. This visit did not involve counseling and coordination that comprised more than 50% of the visit time. EDMUNDO Wyman 05/12/2019 11:04 AM documented in this encounter Plan of Treatment Date Type Specialty Care Team Description 05/26/2019 Routine Visit OB [facility] Den Arredondo FNP [address] [place] [address] [phone] 06/13/2019 Lead Technical Architect Visit Maternal Medicine 06/13/2019 Routine Visit OB [facility] Den Arredondo FNP [address] [place] [address] [phone] 06/13/2019 Lead Technical Architect Visit Maternal Medicine Name Type Priority Associated Diagnoses Order Schedule CBC WITH DIFFERENTIAL LAB Routine Supervision of high Ordered: 05/12/2019 risk , antepartum HIV 1/2 AG-AB WITH LAB Routine Supervision of high Expected: REFLEX risk , 05/12/2019, Expires: antepartum 05/11/2020 GALV ONLY - SYPHILIS LAB Routine Supervision of high Expected: IGG/IGM risk , 05/12/2019, Expires: antepartum 05/11/2020 TDAP VACCINE, >11 YRS, IMMUNIZATION/I Routine Supervision of high 1 Occurrences IM (Do not give before NJECTION risk , starting 05/12/2019 20 weeks) antepartum until 07/12/2019 Health Maintenance Due Date Last Done Comments [...] Date/Time Associated Diagnosis Comments POCT URINALYSIS Routine 05/12/2019 9:36 AM Supervision of high Results for this CDT risk , procedure are in antepartum the results section. documented in this encounter Results POCT URINALYSIS W SPECIFIC GRAVITY (05/12/2019 9:36 AM CDT) POCT U SP GRAV . 1.005 - [...] not applicable Multiparity Low lying placenta, antepartum Obesity in Obesity complicating , childbirth, or the puerperium, unspecified as to episode of care or not applicable documented in this encounter Insurance Payer Benefit Plan / Subscriber ID Effective Phone Address Type Group [facility] xxxxxxxxx 2018- P.ONohemi MICHAELS Medicaid HEALTH CHOICE - HEALTH CHOICE [facility] [id number] MANAGED MEDICAID [place], [place] MEDICAID [id number] documented as of this encounter
--- OUTSIDE RECORDS SUMMARY | 2019-05-15 10:44 | XMS REPORT | Summary of Care ---
:1995 Author Organization [facility] Address [address] [place] [address] Care Team Providers Name Role Phone Den Arredondo Primary Care Provider Reason for Referral (Routine) Status Reason Specialty Diagnoses / Referred By Referred To Procedures Contact Contact New Request Maternal Diagnoses Low lying placenta, antepartum Den Arredondo Medicine Procedures CONSULT MATERNAL MEDICINE ULTRASOUND Preferred Location: EDMUNDO Navarrete [address] [place] [address] Reason for Visit Reason Comments Care Encounter Details Date Type Department Care Team Description 05/12/2019 Routine [facility]- Den Arredondo Supervision of high risk , antepartum (Primary Dx); Visit EDMUNDO Navarrete Previous delivery affecting , antepartum; [address] [facility] [address] [facility] Desires (vaginal after ) trial; [facility] Multiparity; [address] [place], [place] Low lying placenta, antepartum; [phone] Obesity in [phone] Allergies No Known Allergiesdocumented as of this encounter (statuses as of 05/12/2019) Medications Medication Sig Dispensed Refills Start Date End Date Status vit Take 1 Packet by 30 Each 6 01/17/2019 Active 36-gexq-ukjpg-dha mouth daily. (SELECT-OB + DHA) 29 mg iron-1 mg -250 mg combo packIndications: Supervision of high risk , antepartum Vit Take 1 tablet by 30 tablet 9 02/14/2019 Active Comb.10-Iron-FA mouth daily. (VITAFOL-OB) 65-1 mg TabIndications: Supervision of high risk , antepartum vit Take 1 Packet by 30 Each 6 04/11/2019 Active 92-pfpy-ngqxo-dha mouth daily. 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 Tinea corporis 09/01/2012 01/24/2013 Immune to varicella 07/07/2012 05/10/2015 Not immune to rubella 06/10/2012 02/23/2013 Overview: Equiv. Give pospartum. ICD10 Diagnosis Term Welder Oxyhydrogen Utility Teen 06/09/2012 01/24/2013 Overview: Partner age [...] in this encounter Progress Notes Den Arredondo, INSPECTOR [employer] - 05/12/2019 9:30 AM CDT Chief complaint: [...] Karyn Sherman MD; Location: [facility] AND [facility]ERY [facility] Social History Socioeconomic History [...] file Gets together: Not on file Attends samaritan service: Not on file Active member of [...] Asked Social History Narrative Pt states her samaritan preference is [employer] Lives with roommate and child No domestic violence or abuse Patient has 1 puppy. Social History Substance and Sexual Activity Sexual Activity Yes Partners: Male control/protection: None Comment: last sexual intercourse 12/21/2018 Labs Labs are pending. Radiology No new radiology. Allergies [place] has No Known Allergies. Medications [place] has a current medication list which includes the following prescription(s) : vit 27-usyc-lhhga-dha, vit comb.10-iron-fa, and vit 55-mgyj-yzdys-dha. Review of Systems Eyes: Negative for visual [...] Plan: CONSULT MATERNAL MEDICINE ULTRASOUND Preferred Location: [place] Obesity in Comment: BMI: 30.73 Plan: Patient encouraged to limit weight gain and advised to eat healthy diet, fruits, vegetables, increased fiber and water intake and protein low in fat. Encouraged exercise for 30 min everyday; begin regimen with caution to prevent injury. Encouraged to decrease BMI to <25. Return to clinic in 2 weeks via [employer]. Discussed treatment options. Medications as ordered. Reviewed patient instructions and provided printed copy. This visit did not involve counseling and coordination that comprised more than 50% of the visit time. EDMUNDO Wyman 05/12/2019 11:04 AM documented in this encounter Plan of Treatment Date Type Specialty Care Team Description 05/26[facility] [address] [place] [address] [phone] 06/13/2019 Hr Shared Services Consultant Visit Maternal Medicine 06/13/2019 [facility] [address] [place] [address] [phone] 06/13/2019 Hr Shared Services Consultant Visit Maternal Medicine Name Type Priority Associated Diagnoses Date/Time Glucose 1 Hour Post LAB Routine Supervision of high risk 05/12/2019 11:18 AM Prandial , antepartum CDT CBC with Differential LAB Routine Supervision of high risk 05/12/2019 11: 18 AM , antepartum CDT CBC WITH DIFFERENTIAL LAB Routine Supervision of high risk 05/12/2019 11: 18 AM , antepartum CDT Name Type Priority Associated Diagnoses Order Schedule HIV 1/2 AG-AB WITH LAB Routine Supervision of high Expected: 05/12/2019, REFLEX risk , Expires: 05/11/2020 antepartum GALV ONLY - LAB Routine Supervision of high Expected: 05/12/2019, SYPHILIS IGG/IGM risk , Expires: 05/11/2020 antepartum TDAP VACCINE, >11 IMMUNIZATION/IN Routine Supervision of high 1 Occurrences YRS, IM (Do not JECTION risk , starting 05/12/2019 give before 20 antepartum until 07/12/2019 weeks) Health Maintenance Due Date Last Done Comments [...] ID Effective Phone Address Type Group Dates [facility] xxxxxxxxx 2018-Pres [address] Medicaid HEALTH CHOICE - HEALTH CHOICE ent [id number] MANAGED MEDICAID [place], [place] MEDICAID [phone] documented as of this encounter
[2019-05-15] MEDS ORDERED: LEVALBUTEROL 1.25 MG/3 ML NEB ONE (11:30)
[2019-05-15 12:21] LABS: Urine Blood NEGATIVE (NEG); Urine Glucose TRACE (NEG); Urine Protein NEGATIVE (NEG); Urine pH 6.5 (5.0-7.0)
--- NOTE | 2019-05-15 13:09 | RAD REPORT ---
EXAM DESCRIPTION: Robert Pa And Lat (2 Views)05/15/2019 12:47 pm CLINICAL HISTORY: Cough COMPARISON: None FINDINGS: Interstitial pattern appears mildly prominent within the lung bases. This probably represe nts pulmonary vascularity rather than infiltrate. Upper lobes are clear. The heart is normal size
--- NOTE | 2019-05-15 13:25 | ER ---
Nurse's Notes [facility] Name: France Smith Age: 24 yrs Sex: Female : 1995 Arrival Date: 05/15/2019 Time: 10:42 Bed 13 Private MD: Diagnosis: Dyspnea, unspecified;Urinary tract infection, site not specified Presentation: 05/14 11:05 Chief complaint: Patient states: Unable to take a deep breath x 3 days. Pt believes ss it's her allergies and the fact that she is . Pt states that this has occurred before, but worse and an albuterol inhaler helped tremendously. Is asking for refill on albuterol inhaler. Coronavirus screen: Patient denies fever greater than 100.4F, cough, shortness of breath, or difficulty breathing. Proceed with normal triage process. Ebola Screen: Patient denies exposure to infectious person. Patient denies travel to an Ebola-affected area in the 21 days before illness onset. Initial Sepsis Screen: Does the patient meet any 2 criteria? No. Patient's initial sepsis screen is negative. Does the patient have a suspected source of infection? No. Patient's initial sepsis screen is negative. Risk Assessment: Do you want to hurt yourself or someone else? Patient reports no desire to harm self or others. 11:05 Method Of Arrival: Ambulatory ss 11:05 Acuity: MELINDA 4 hb Historical: - Allergies: 11:11 No Known Allergies; ss - Home Meds: 11:11 None [Active]; ss - PMHx: 11:11 pylonephritis; ss - PSHx: 11:11 None; ss - Immunization history:: Adult Immunizations up to date. - Social history:: Smoking status: Patient denies any tobacco usage or history of. Screenin:14 Abuse screen: Denies threats or abuse. Denies injuries from another. Nutritional hb screening: No deficits noted. Tuberculosis screening: No symptoms or risk factors identified. Fall Risk None identified. Assessment: 11:15 General: Appears in no apparent distress. Behavior is calm. Pain: Denies pain. Neuro: hb Level of Consciousness is awake, alert, obeys commands, Oriented to person, place, time, situation. Cardiovascular: Capillary refill < 3 seconds Patient's skin is warm and dry. Rhythm is regular. Respiratory: Airway is patent Respiratory effort is even, unlabored, Respiratory pattern is regular, symmetrical, Breath sounds are clear bilaterally. GI: No signs and/or symptoms were reported involving the gastrointestinal system. : No signs and/or symptoms were reported regarding the genitourinary system. EENT: No signs and/or symptoms were reported regarding the EENT system. Derm: Skin is pink, warm \T\ dry. Musculoskeletal: No signs and/or symptoms reported regarding the musculoskeletal system. 12:15 Reassessment: Patient appears in no apparent distress at this time. Patient and/or hb family updated on plan of care and expected duration. Pain level reassessed. Patient is alert, oriented x 3, equal unlabored respirations, skin warm/dry/pink. 13:14 Reassessment: Patient appears in no apparent distress at this time. Patient and/or hb family updated on plan of care and expected duration. Pain level reassessed. Patient is alert, oriented x 3, equal unlabored respirations, skin warm/dry/pink. Vital Signs: 11:05 BP 110 / 65; Pulse 89; Resp 15; Temp 99.1(O); Pulse Ox 99% on R/A; Weight 86.18 kg; ss Height 5 ft. 6 in. (167.64 cm); Pain 0/10; 13:21 BP 114 / 72; Pulse 98; Resp 16; Pulse Ox 100% on R/A; Pain 0/10; ss 11:05 Body Mass Index 30.67 (86.18 kg, 167.64 cm) ss ED Course: 10:42 Patient arrived in ED. mr 11:05 Isaiah Patterson PA is PHCP. jmm 11:05 Negrito Clemente MD is Attending Physician. jmm 11:05 Arm band placed on right wrist. ss 11:10 Triage completed. ss 11:17 Leah Black, STEF is Primary Nurse. ss 12:48 Chest Pa And Lat (2 Views) XRAY In Process Unspecified. EDMS 13:14 Patient has correct armband on for positive identification. Bed in low position. Call light in reach. Side rails up X 1. 13:22 No provider procedures requiring assistance completed. Patient did not have IV access ss during this emergency room visit. Administered Medications: 11:23 Not Given (Other Intervention Used): Albuterol HFA Inhaler 2 puffs Inhalation once ss 11:29 Drug: Xopenex (3) 1.25 mg Route: Inhalation; ss 12:22 Follow up: Response: No adverse reaction hb 13:22 Follow up: Response: No adverse reaction; Marked relief of symptoms ss Outcome: 13:22 Condition: good ss 13:22 Discharge instructions given to patient, Instructed on discharge instructions, follow up and referral plans. medication usage, Demonstrated understanding of instructions, follow-up care, medications, Prescriptions given X 2. 13:24 Discharge ordered by . josé luis 13:30 Discharged to home ambulatory. ss 13:30 Patient left the ED. ss Signatures: Dispatcher [employer] EDMS Isaiah Patterson PA PA todd CalderónSilvana mr Leah Black RN RN Salena Zhong RN RN Corrections: (The following items were deleted from the chart) 11:11 11:05 BP 116 / 73; Pulse 78bpm; Resp 15bpm; Pulse Ox 97% RA; Temp 98.3F Oral; 70.31 kg; ss Height 5 ft. 9 in.; BMI: 22.8; Pain 6/10; ss 13:15 11:05 Acuity: MELINDA 5 ss hb 13:30 13:22 Discharge instructions given to patient, Instructed on discharge instructions, ss follow up and referral plans. medication usage, Demonstrated understanding of instructions, follow-up care, medications, Prescriptions given X 1, ss
--- NOTE | 2019-05-15 13:25 | EDPHYS ---
Physician Documentation [facility] Name: France Smith Age: 24 yrs Sex: Female : 1995 Arrival Date: 05/15/2019 Time: 10:42 Bed 13 Private MD: ED Physician Negrito Clemente HPI: 05/14 11:33 This 24 yrs old Female presents to ER via Ambulatory with complaints of jmm Breathing Difficulty. 11:33 The patient has shortness of breath at rest. Onset: The symptoms/episode began/occurred jmm gradually, 2 day(s) ago. Duration: The symptoms are continuous. The patient's shortness of breath is aggravated by supine position. This is a 24 year old that presents to the ED with complaints of SOB which began 2 days ago. Patient states she had similar symptoms 3 months ago. Patient was evaluated in the ED and followed up with her OBGYN whom agreed with the plan of symptomatic care. Patient denies fever, denies chest pain, denies unilateral leg swelling. . Historical: - Allergies: 11:11 No Known Allergies; ss - Home Meds: 11:11 None [Active]; ss - PMHx: 11:11 pylonephritis; ss - PSHx: 11:11 None; ss - Immunization history:: Adult Immunizations up to date. - Social history:: Smoking status: Patient denies any tobacco usage or history of. ROS: 11:33 Constitutional: Negative for fever, chills, and weight loss, Cardiovascular: Negative jmm for chest pain, palpitations, and edema. 11:33 Abdomen/GI: Negative for abdominal pain, nausea, vomiting, diarrhea, and constipation, Back: Negative for injury and pain. 11:33 Respiratory: Positive for shortness of breath. 11:33 : Negative for urinary symptoms. 11:33 All other systems are negative. Exam: 11:33 Constitutional: This is a well developed, well nourished patient who is awake, alert, jmm and in no acute distress. Head/Face: atraumatic. Eyes: EOMI, no conjunctival erythema appreciated ENT: Moist Mucus Membranes Neck: Trachea midline, Supple Chest/axilla: Normal chest wall appearance and motion. 11:33 Cardiovascular: Rate: normal, Rhythm: regular, Pulses: no pulse deficits are appreciated. 11:33 Respiratory: the patient does not display signs of respiratory distress, Respirations: normal, Breath sounds: are clear throughout. 11:33 Musculoskeletal/extremity: ROM: intact in all extremities, mild edema noted to the ankles bilaterally. 11:33 Skin: Appearance: Color: normal in color. 11:33 Neuro: Motor: is normal. 11:33 Psych: Behavior/mood is pleasant, cooperative. Vital Signs: 11:05 BP 110 / 65; Pulse 89; Resp 15; Temp 99.1(O); Pulse Ox 99% on R/A; Weight 86.18 kg; ss Height 5 ft. 6 in. (167.64 cm); Pain 0/10; 13:21 BP 114 / 72; Pulse 98; Resp 16; Pulse Ox 100% on R/A; Pain 0/10; ss 11:05 Body Mass Index 30.67 (86.18 kg, 167.64 cm) ss MDM: 11:08 Patient medically screened. [facility] 13:22 The patient's pulmonary embolism risk score was calculated as follows: Total Score: 0-2 [facility] points. This patient was found to be at low risk for a pulmonary embolism by using the Well[facility] assessment criteria. Data reviewed: vital signs, nurses notes, lab test result(s), urinalysis, bacteruria, radiologic studies, plain films. ED course: Patient states feeling much better. Advised to closely follow up with OB for reevaluation. I do not currently suspect PE, no pain, normal vitals. Patient is given strict return precautions. Patient understood and agrees with the plan of care. . 05/14 12:11 Order name: Urine Culture [facility] 05/14 12:11 Order name: Urine Culture [facility] 05/14 11:16 Order name: Chest Pa And Lat (2 Views) XRAY; Complete Time: 13:11 [facility] 05/14 12:13 Order name: Urine Dipstick--Ancillary (enter results); Complete Time: 12:27 [facility] 05/14 12:13 Order name: Urine --Ancillary (enter results); Complete Time: 12:27 [facility] 05/14 11:37 Order name: Urine Dipstick-Ancillary (obtain specimen); Complete Time: 12:44 [facility] Administered Medications: 11:23 Not Given (Other Intervention Used): Albuterol HFA Inhaler 2 puffs Inhalation once ss 11:29 Drug: Xopenex (3) 1.25 mg Route: Inhalation; ss 12:22 Follow up: Response: No adverse reaction hb 13:22 Follow up: Response: No adverse reaction; Marked relief of symptoms ss Disposition: 13:48 Co-signature as Attending Physician, Negrito Clemente MD I agree with the assessment and jacob plan of care. Disposition: 05/15/19 13:24 Discharged to Home. Impression: Dyspnea, unspecified, Urinary tract infection, site not specified. - Condition is Stable. - Discharge Instructions: Shortness of Breath, [id number], and Urinary Tract Infection. - Prescriptions for Keflex 500 mg Oral Capsule - take 1 capsule by ORAL route every 12 hours for 10 days; 20 capsule. Albuterol Sulfate 90 mcg/actuation - inhale 1-2 puff by INHALATION route every 4-6 hours; 1 Inhaler. - Medication Reconciliation Form, Thank You Letter, Antibiotic Education, Prescription Opioid Use form. - Follow up: Private Physician; When: 2 - 3 days; Reason: Recheck today's complaints, Continuance of care, Re-evaluation by your physician. Signatures: Dispatcher [employer] EDNegrito Lowe MD MD cha Mickail, Joel, PA PA jmm Smirch, Shelby, RN RN ss Baxter, Heather RN Corrections: (The following items were deleted from the chart) 13:30 13:24 05/15/2019 13:24 Discharged to Home. Impression: Dyspnea, unspecified; Urinary ss tract infection, site not specified. Condition is Stable. Forms are Medication Reconciliation Form, Thank You Letter, Antibiotic Education, Prescription Opioid Use. Follow up: Private Physician; When: 2 - 3 days; Reason: Recheck today's complaints, Continuance of care, Re-evaluation by your physician. josé luis
[2019-05-15 13:36] VITALS: TEMP 99.1
[2019-05-15 13:38] VITALS: BP 114/72; O2SAT 100
== END 2019-05-15 13:30 | disposition home or self-care (01) ==
LOC: ER 10:40
DX: O23.40 Unspecified infection of urinary tract in pregnancy, unspecified trimester (principal); Z3A.00 Weeks of gestation of pregnancy not specified
CPT/HCPCS: 71046; 81003; 81025; 87086; 87088; 99284